=== PATIENT | female | born 1990 | race Caucasian/White ===

== ENCOUNTER 2020-04-21 02:42 | Inpatient (IN) | payer MEDICAID, SELFPAY ==
[2020-04-21] VITALS (18 sets, daily range): BP systolic 0–144; BP diastolic 0–88; PULSE 79–101; RESP 15–16; TEMP 36.7–37.2; O2SAT 98; BMI 27.2
--- NOTE | 2020-04-21 03:10 | P.PCNOB_ITS ---
Delivery Note: Date of delivery: April 21, 2020 Pre-Delivery Course: The patient is a 3 para 2-0-0-2 with an estimated gestational age of 38 weeks who presented to the hospital in active labor. She was found to be complete upon arrival. She was in my office yesterday where she was found to have a systolic blood pressure greater than 140 during 3 different blood pressure checks. At that time we elected to induce her today at 1:00 in the afternoon. It looks like that wont be necessary. Her course was unremarkable. She was GBS negative. Her glucose screen was negative. Remainder of her labs were within normal limits. Delivery: DELIVERY: The patient progressed to complete without difficulty. She delivered a female with a weight of 7 pounds 9 ounces with Apgars of 7, 9. The baby was delivered from the ANEL position. The baby's mouth and nose were suctioned at the site of the perineum. The baby was then completely delivered and placed on the mother's abdomen. The cord was then clamped and cut 1 minute after delivery. There was a nuchal cord x2. There was no meconium. The placenta and 3 vessel cord were delivered intact shortly thereafter. The perineum and vaginal vault were carefully examined. No lacerations were noted. Both the mother and the baby were in stable condition. A&P Assessment and plan (1) 38 weeks gestation of : Status: Acute (2) Spontaneous vaginal delivery: Status: Acute (3) Gestational hypertension: Status: Acute Coding Level of Care Code Acute Weaver Apprentice for Chg Fwd Diagnoses 38 weeks gestation of Z3A.38 Spontaneous vaginal delivery O80 Gestational hypertension O13.9
[2020-04-21 03:53] LABS: Basophils # 0.1 10^3/uL (0.0-0.1); Basophils % 0.4 %; Eosinophils # 0.2 10^3/uL (0.0-0.8); Eosinophils % 1.5 %; Hematocrit 33.1 % (37.0-47.0); Hemoglobin 10.5 g/dL (11.5-15.3); Lymphocytes # 2.3 10^3/uL (0.8-4.8); Lymphocytes % 15.7 %; Mean Corpuscular HGB Conc 31.7 g/dL (30.0-36.0); Mean Corpuscular Hemoglobin 26.4 pg (28.0-34.0); Mean Corpuscular Volume 83.4 fL (81-99); Mean Platelet Volume 11.3 fL (7.4-10.4); Monocytes # 1.3 10^3/uL (0.2-0.9); Monocytes % 8.5 %; Neutrophils # 10.73 10^3/uL (1.8-7.7); Neutrophils % 73.2 %; Nucleated Red Blood Cells % 0 %; Platelet Count 222 10^3/cmm (130-400); Red Blood Count 3.97 10^6/uL (4.1-5.3); Red Cell Distribution Width 13.3 % (12.1-15.1); White Blood Count 14.7 10^3/uL (4.0-10.0)
[2020-04-21] MEDS: prenatal vitamin Capsule 1 CAP PO (08:14)
[2020-04-21] MEDS: docusate sodium 100 mg Capsule PO ×2 (08:14→18:04)
[2020-04-21 15:31] LABS: Hematocrit 31.2 % (37.0-47.0); Hemoglobin 9.6 g/dL (11.5-15.3); Mean Corpuscular HGB Conc 30.8 g/dL (30.0-36.0); Mean Corpuscular Hemoglobin 26.2 pg (28.0-34.0); Mean Platelet Volume 10.8 fL (7.4-10.4); Platelet Count 193 10^3/cmm (130-400); Red Blood Count 3.67 10^6/uL (4.1-5.3); Red Cell Distribution Width 13.2 % (12.1-15.1); White Blood Count 15.8 10^3/uL (4.0-10.0)
[2020-04-22 04:00] VITALS: BP 111/78; PULSE 91; RESP 16; TEMP 36.6; O2SAT 97
--- NOTE | 2020-04-22 06:24 | P.DS_ITS ---
Discharge Providers PATIENT NAVIGATOR Date of Admission: 04/21/20 02:42 Date of Discharge: 04/22/20 Attending Provider at Admission: Jaydon Briscoe MD Attending Provider at Discharge: Jaydon Briscoe MD Primary Care Provider: Iesha Thompson APN Diagnoses at Discharge Discharge Diagnosis (1) 38 weeks gestation of : Status: Acute (2) Spontaneous vaginal delivery: Status: Acute (3) Gestational hypertension: Status: Acute Reason for Visit Reason for Visit: ABD PAIN Hospital Course Hospital Course: The patient arrived to the hospital after having contractions every 3 to 5 minutes for several hours. She was checked after arriving at the hospital and found to be complete. I was contacted and arrived approximately 20 minutes later. The patient then pushed through 2 contractions and delivered an infant without difficulty. The baby was a healthy-appearing female infant in did not have any difficulty during her hospital stay. The patient also did well. She breast-fed well. Her pain was well controlled. Her bleeding was within normal limits. There were no concerns. Information Peripartum Data: Delivery Method: Vaginal Physical Exam Narrative: EXAM NARRATIVE: The patient is alert. She appears comfortable. Her heart has a regular rate and rhythm with no murmurs appreciated. Lungs are clear to auscultation bilaterally. Her fundus is firm and below the umbilicus. Discharge Data Data Completed and Pending: Pending at discharge Category Date Time Status PTC COVID [Russ virus Lab Test PTC ] Stat Lab 04/21/20 04:35 Received Labs from last 24 hours 04/21/20 04/21/20 15:15 04:35 WBC 15.8 H RBC 3.67 L Hgb 9.6 L Hct 31.2 L MCV 85.0 MCH 26.2 L MCHC 30.8 RDW 13.2 Plt Count 193 MPV 10.8 H Nasal/Oral COVID-1 9 PCR Pending Vitals: Last Vital Signs Temp 97.8 F 04/22/20 04:00 Pulse 91 04/22/20 04:00 Resp 16 04/22/20 04:00 BP 111/78 04/22/20 04:00 Pulse Ox 97 04/22/20 04:00 Discharge Plan Discharge Patient Disposition: Home Condition: Stable Prescriptions: New ibuprofen 800 mg Tablet 800 mg PO TID Qty: 30 RF: 0 Continued Zoloft 25 mg Tablet 25 mg PO DAILY RF: 0 melatonin 1 mg Tablet 1 mg PO DAILY RF: 0 Vitamin 1 tab PO DAILY RF: 0 Discontinued Unisom (doxylamine) 25 mg Tablet 25 mg PO Q6H RF: 0 Discharge Orders: Discharge Order (Routine); Ordered 04/22/20 Ordered By: Jaydon Briscoe Referrals: Jaydon Briscoe MD [Physician] - 06/03/20 12:00 pm (* Your 6 week follow up appointment is with Dr. Briscoe on 06/03/2020 at 12:00pm. 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
[2020-04-22] MEDS: prenatal vitamin Capsule 1 CAP PO (09:12)
[2020-04-22] MEDS: docusate sodium 100 mg Capsule PO (09:12)
[2020-04-22 09:13] VITALS: BP 117/73; PULSE 111
[2020-04-22 09:19] VITALS: BP 117/73; PULSE 111; RESP 18; TEMP 36.9; O2SAT 98
[2020-04-22 16:00] LABS: Coronavirus Lab Test PTC Negative
== END 2020-04-22 09:25 | disposition home or self-care (01) | DRG 807 ==
LOC: OPOB 02:42 → OBGYN 03:00
PROVIDERS: Admitting Provider Family Medicine; PCP Nurse Practitioner; Visit Provider Family Medicine
DX: O62.3 Precipitate labor (principal); Z37.0 Single live birth; O13.4 Gestational [pregnancy-induced] hypertension without significant proteinuria, complicating childbirth; Z3A.38 38 weeks gestation of pregnancy; O69.81X0 Labor and delivery complicated by cord around neck, without compression, not applicable or unspecified
CPT/HCPCS: 12345; 36415; 59025; 59409; 85025; 85027; 86850; 86900; 87635; 99211

== ENCOUNTER → 2021-07-09 17:33 | Outpatient (BNVA) | payer BC, SELFPAY | PROVIDERS: PCP Family Medicine; Visit Provider Family Medicine | DX: Z20.822 Contact with and (suspected) exposure to COVID-19 (principal); R05.9 Cough, unspecified; U07.1 COVID-19 | CPT/HCPCS: 87400; 87635; 87880 ==

== ENCOUNTER → 2022-08-16 15:58 | Outpatient (BNVA) | payer BC, MEDICAID, SELFPAY | PROVIDERS: PCP Family Medicine; Visit Provider Emergency Medicine | DX: S89.92XA Unspecified injury of left lower leg, initial encounter (principal); W10.9XXA Fall (on) (from) unspecified stairs and steps, initial encounter | CPT/HCPCS: 73562 ==

== ENCOUNTER → 2022-09-11 13:49 | Outpatient (BNVA) | payer BC, MEDICAID, SELFPAY | PROVIDERS: PCP Family Medicine; Visit Provider Family Medicine | DX: J02.9 Acute pharyngitis, unspecified (principal) | CPT/HCPCS: 87880 ==

== ENCOUNTER 2022-10-06 11:50 | Outpatient (CLI) | payer BC, MEDICAID, SELFPAY ==
--- NOTE | 2022-10-06 11:56 | MR_ITS ---
WS: [id number] MRI LEFT KNEE HISTORY: MCMURRAYS SIGN PRESENT IN L KNEE COMPARISON: Radiograph 08/16/2022 Anterior cruciate ligament: Intact. Posterior cruciate ligament: Intact. Medial collateral ligament: Intact. Posterior lateral corner structures: Intact. Medial menisci: Abnormal signal in the anterior and posterior horns of the medial meniscus. Small prema iber anterior horn with intrasubstance degeneration throughout. Increased signal throughout the poste rior horn extending to the superior articular surface. Abnormal signal extends also towards the free edge and the meniscal root. Lateral meniscus: Intact. Normal signal, size and shape. Extensor mechanism: Distal quadriceps tendon and patellar tendons are intact. Fluid and soft tissue: No joint effusion. No Shrestha's cyst. Osseous and articular structures: Patellofemoral compartment: Normal. Medial compartment: Mild narrowing of the medial compartment. Very minimal thinning and fissuring of cartilage. No full thickness defect. No marrow edema. Lateral compartment: Normal. MR/MR knee LT wo con* [id number] IMPRESSION: 1. No ACL tear. 2. Abnormal medial meniscus involving the anterior and posterior horns. There is intrasubstance degeneration with tears. Complex tear posterior horn with ext ension to the superior articular surface. 3. No marrow edema or fracture.
== END 2022-10-06 11:51 | disposition home or self-care (01) ==
LOC: RAD 11:52
PROVIDERS: PCP Family Medicine; Visit Provider Nurse Practitioner Family
DX: S83.207A Unspecified tear of unspecified meniscus, current injury, left knee, initial encounter (principal); X58.XXXA Exposure to other specified factors, initial encounter
CPT/HCPCS: 73721

== ENCOUNTER → 2022-10-18 10:59 | Outpatient (BNVA) | payer BC, MEDICAID, SELFPAY | PROVIDERS: PCP Family Medicine; Referring Provider Family Medicine; Visit Provider Specialist | DX: S83.232A Complex tear of medial meniscus, current injury, left knee, initial encounter (principal); X50.9XXA Other and unspecified overexertion or strenuous movements or postures, initial encounter | CPT/HCPCS: 73560; 73565 ==

== ENCOUNTER 2022-11-10 07:57 | Day surgery (SDC) | payer BC, MEDICAID, SELFPAY ==
[2022-11-09 09:37] VITALS: BMI 26.6
[2022-11-10] VITALS (10 sets, daily range): BP systolic 64–126; BP diastolic 46–83; PULSE 68–102; RESP 11–20; TEMP 36.1–36.5; O2SAT 97–100
[2022-11-10 08:22] LABS: OR HCG Qualitative Urine Negative (Negative)
[2022-11-10] MEDS: CELEcoxib 200 mg Capsule 400 MG PO (08:49)
[2022-11-10] MEDS: acetaminophen 1,000 MG/100 ML PIGGYBACK 400 MG IV (08:49)
[2022-11-10] MEDS: sodium chloride 0.9% 1,000 ML 30 ML IV (08:50)
[2022-11-10] MEDS: gabapentin 300 mg Capsule PO (08:50)
--- NOTE | 2022-11-10 08:50 | ANES.PREANE2 ---
Pre-Anesthetic Assessment Height/Weight: Height 1.68 m Weight 74.843 kg Temp Pulse Resp BP Pulse Ox O2 Del Method 97.7 F 102 H 16 126/83 98 11/10/22 08:19 11/10/22 08:19 11/10/22 08:19 11/10/22 08:19 11/10/22 08:19 11/10/22 08:24 Preop Diagnosis: Left medial meniscal tear Operation Date: 11/10/22 09:40 Proposed Procedures p LEFT KNEE ARTHROSCOPY WITH PARTIAL MEDIAL MENISECTOMY AND DEBRIDEMENT 92056, S83.232A S89.92XA(Left) - Lucy Aguilar MD s Meniscectomy(Left) - Lucy Aguilar MD s Debridement Lower Extremity(Left) - Lucy Aguilar MD Familial anesthetic complications: None Was Beta Librado taken within 24 hours: Yes Was Clonidine taken within 24 hours: N/A Last intake: Intake Last Liquid Date 11/09/22 Last Liquid Time 21:00 Last Solid Date 11/09/22 Last Solid Time 19:00 Social No alcohol and No tobacco Exam alert, oriented x 3, clear to auscultation bilaterally and regular rate & rhythm Airway Mallampati: Class II Dentition: chipped Neuropsych Anxiety Anesthetic Plan ASA status: 2 Anesthesia: General Risk of > 500 ml blood loss (7ml/kg in children): No Medications/Allergies Home Medications Medication Instructions Recorded Confirmed Last Taken Type amitriptyline 25 mg tablet 25 mg PO DAILY 08/16/22 11/09/22 11/09/22 History miscellaneous medical supply 1 ea miscellaneous .prn left knee 08/16/22 10/18/22 Unknown Rx injury #1 ea propranolol 20 mg tablet 10 mg PO BID 08/16/22 11/09/22 11/10/22 History ibuprofen 800 mg tablet 800 mg PO TID #30 tabs 08/27/22 11/09/22 11/02/22 Rx Allergies Allergy/AdvReac Type Severity Reaction Status Date / Time Penicillins Allergy ALGY-Hives Verified 11/09/22 09:35 silver Allergy ALGY-Hives Verified 11/09/22 09:35 terbinafine Allergy Unknown Verified 10/18/22 11:10 PFSH Anesthesia Female Reproductive History Date of last menstrual period: 11/06/22 Data Anesthesia Cardiac Studies: No Data to Display
--- NOTE | 2022-11-10 09:19 | W.PM.OPSUD ---
Surgery/Procedure H&P Update DATE OF PROCEDURE: November 10, 2022 DATE H&P PERFORMED: 10/18/22 H&P UPDATE INFORMATION: I have reviewed H&P completed within last 30 days, I have examined patient prior to procedure, No changes to prior documentation and H&P is in [facility] EMR on date indicated PREOP DIAGNOSIS: Left medial meniscal tear PRIMARY INDICATION FOR PROCEDURE: Noncontrast MRI of the left knee was obtained at [facility] on October 06, 2022.? This was read by Dr. Charley Baer.? Findings on this MRI include intact anterior and posterior cruciate ligaments as well as medial and lateral collateral ligaments.? The lateral meniscus was noted to be normal.? Quadriceps and patellar tendons were intact.? At the time, there was no joint effusion or Shrestha's cyst.? There was mild narrowing of the medial compartment with minimal thinning and fissuring of the cartilage, but no full-thickness defect.? The remaining articular surfaces were normal.? Most significant finding was of abnormal signal in the anterior and posterior horns of the medial meniscus.? There was small caliber to the anterior horn with intrasubstance degeneration throughout and increased signal in the posterior horn extending to the superior articular surface and extending toward the free edge of the meniscal root.? This was felt to represent a complex tear particularly in the posterior horn but also involving the anterior horn of the medial meniscus. PLANNED PROCEDURE: Operation Date: 11/10/22 09:40 Proposed Procedures p LEFT KNEE ARTHROSCOPY WITH PARTIAL MEDIAL MENISECTOMY AND DEBRIDEMENT 76879, S83.232A S89.92XA(Left) - Lucy Aguilar MD s Meniscectomy(Left) - Lucy Aguilar MD s Debridement Lower Extremity(Left) - Lucy Aguilar MD Related Problem List Diagnoses (1) Tear of medial meniscus of left knee, current: Qualifiers: Encounter type: initial encounter Meniscus tear of knee type: complex Qualified Code(s): S83.232A - Complex tear of medial meniscus, current injury, left knee, initial encounter
[2022-11-10] MEDS: clindamycin 600 MG/50 ML PREMIX 100 MG IV (09:42)
--- NOTE | 2022-11-10 11:13 | P.OP_ITS ---
Operative Report Date of procedure: November 10, 2022 Pre-op diagnosis: Left medial meniscal tear Post-op diagnosis: Left medial and lateral meniscal tears Post-op findings: Bucket-handle type tear of the medial meniscus with inner rim tearing of the lateral meniscus Procedure done: Left arthroscopic knee surgery with partial medial and lateral meniscectomies. Pathology: none sent Surgeon: Lucy Aguilar Supervisor Safety Deposit: None Anesthesia: General (Per LMA, ASA 2) Estimated blood loss (mL): 2 Tourniquet time (min): 44 (At 250 mmHg) IV fluids (mL): 800 Urine output (mL): 0 (No Shaikh) Complications: None Condition: stable Disposition: PACU (Then return to same-day surgery for discharge to home) Brief History: This is a 32 year old female patient here today for left arthroscopic knee surgery with partial medial meniscectomy and appropriate debridement. Per MRI, the patient has a significant medial meniscal tear. She reports an injury on June 27, 2022. She states states as she was walking up her porch steps when she missed a step causing her to have a weighted pivoting injury. She explains she was holding her 2 year old daughter and trying not to fall with her into the wall. She states she didn't notice any immediate pain or popping noise. She explains she started to notice pain and swelling in August. She reports pain with squatting. She reports a soreness sensation with walking. She points to her medial patella as to where her pain is located. She states she has completed a month trial of Diclofenac with mild relief. She states she is currently active in physical therapy 3 times a week with mild relief. She states she has been active in therapy since September 14. Procedure: Patient was brought to the operating theater and after undergoing adequate general anesthesia per LMA, the patient's left lower extremity was prepped and draped in usual fashion utilizing DuraPrep. A tourniquet was placed high on the leg prior to prepping and draping. The tourniquet was elevated prior to commencement of the surgical procedure to 250 mmHg. Total tourniquet time was 44 minutes. Elevation followed prepping and exsanguination. Prior to commencement of the surgical procedure, a surgical pause was performed. At the time of the surgical pause, we identified the site and side of surgery. We also confirm the patient's identity and appropriate and timely administration of preoperative antibiotics, clindamycin 600 mg. Preoperative surgical markings were also visualized at this time. Standard arthroscopic portals were utilized including superolateral, inferomedial, and inferolateral portals. 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 The arthroscope was then passed in the medial compartment where there was noted to be a bucket- handle type tear of the medial meniscus. This tear was displaced anteriorly. A combination of basket forceps and the intra-articular shaver was used to address this tear. After it had been resected, the heat wand was used to smooth the edges. The meniscus was then palpated and found to be intact with no further displaceable portions. The arthroscope was then passed across the notch area where anterior cruciate ligament was visualized and found to be intact. The scope was passed into the lateral compartment with the knee in a [id number] position. Lateral meniscus was noted to have inner rim tearing. This was addressed with the heat wand. The edge was noted to be quite thinned and there were small tears. These tears were resected. The meniscus was then palpated and found to not be displaceable into the joint. Scope was then returned to the medial compartment where further evaluation of the medial meniscus was accomplished. The meniscus was again palpated and found to be not displaceable into the knee joint. The arthroscope was then returned to the patellofemoral joint where a partial synovectomy was accomplished using the intra-articular shaver and subsequently the heat wand. Once this area had been addressed, the scope was passed back through the knee compartments to evaluate for other abnormalities. Finding none, attention was directed to closure. The knee was copiously irrigated and suctioned dry. Following this, each portal was closed with a simple suture followed by Dermabond, Steri-Strip, and OpSite. Additionally, the knee was injected with 20 mL of half percent ropivacaine and 8 mg of morphine. Additional 10 mL of ropivacaine was placed about the portals. Sterile dressing was placed consisting of the OpSite followed by sterile soft roll and and Chris wrap. Patient was returned to Recovery Room in satisfactory condition where she will be discharged home to follow-up with me in the office as scheduled. There were no complications and no specimens. Related Problem List Diagnoses (1) Tear of medial meniscus of left knee, current: (2) Tear of lateral meniscus of knee, current:
--- NOTE | 2022-11-10 11:39 | ANE.PACU2 ---
Inpatient post-anesthesia follow up: Airway intact: Yes Vital signs: Temperature 97.2 F Pulse Rate 80 Respiratory Rate 11 Blood Pressure 100/66 Pulse Oximetry 97 Oxygen Delivery Me thod Room Air Oxygen Flow Rate 6 Fraction of Inspir ed Oxygen Hydration adequate: Yes Nausea and vomiting: No Pain level: 1 Mental status: Baseline
[2022-11-10] MEDS: HYDROcodone-acetaminophen 5-325 mg Tablet 1 TAB PO (12:50)
== END 2022-11-10 13:25 | disposition home or self-care (01) ==
PROVIDERS: Anesthesiology; PCP Family Medicine; Visit Provider Specialist
PROC: (CPT 29870; principal; 2022-11-10 09:30)
PROC: (CPT 29880; 2022-11-10 09:30)
PROC: (CPT 29880; 2022-11-10 09:30)
DX: S83.212A Bucket-handle tear of medial meniscus, current injury, left knee, initial encounter (principal); S83.282A Other tear of lateral meniscus, current injury, left knee, initial encounter; X58.XXXA Exposure to other specified factors, initial encounter; F41.9 Anxiety disorder, unspecified
CPT/HCPCS: 29880; 81025; 84703; J0131; J1100; J1200; J1885; J2250; J2405; J2704; J3010; J3490; J7030

== ENCOUNTER 2024-04-17 13:09 | Outpatient (CLI) | payer BC, MEDICAID, SELFPAY ==
--- NOTE | 2024-04-17 | XR_ITS ---
WS: [id number] Examination: XR chest 2V* [id number] Reason for Exam: COUGH Date: 04/17/2024 Comparison: None. Findings: The cardiomediastinal silhouette is within normal limits. There is no dense consolidative change. There is no congestion/edema or pleural effusion. Pectus excavatum deformity is identified. XR/XR chest 2V* [id number] Impression: No dense consolidation is seen.
== END 2024-04-17 13:10 | disposition home or self-care (01) ==
LOC: RADOUTREAD 13:12
PROVIDERS: PCP Family Medicine; Visit Provider Family Medicine
DX: R05.9 Cough, unspecified (principal)

== ENCOUNTER 2024-05-09 09:30 | Oncology outpatient (recurring) (ONCR) | payer BC, MEDICAID, SELFPAY ==
[2024-04-25 09:54] VITALS: BP 125/65; PULSE 98; RESP 16; TEMP 36.9; O2SAT 100
[2024-04-25] MEDS: iron sucrose 200 MG in sodium chloride 0.9% (100 ml) 100 ML 220 MG IV (10:19)
[2024-04-25] MEDS: sodium chloride 0.9% 250 ML 220 ML IV (10:19)
[2024-04-25 11:15] VITALS: BP 109/73; PULSE 89; RESP 16; TEMP 36.3; O2SAT 99
[2024-05-02 10:05] VITALS: BP 108/73; PULSE 85; RESP 16; TEMP 36.9; O2SAT 99
[2024-05-02] MEDS: iron sucrose 200 MG in sodium chloride 0.9% (100 ml) 100 ML 220 MG IV (10:15)
[2024-05-09] MEDS: iron sucrose 200 MG in sodium chloride 0.9% (100 ml) 100 ML 220 MG IV (10:32)
[2024-05-09 11:07] VITALS: BP 106/75; PULSE 75; RESP 16; TEMP 37; O2SAT 99
== END 2024-05-12 23:59 | disposition home or self-care (01) ==
PROVIDERS: PCP Family Medicine; Visit Provider Family Medicine
DX: D50.9 Iron deficiency anemia, unspecified (principal); Z79.899 Other long term (current) drug therapy; Z53.9 Procedure and treatment not carried out, unspecified reason
CPT/HCPCS: 96365; J1756; J7050

== ENCOUNTER 2024-05-23 09:39 | Oncology outpatient (recurring) (ONCR) | payer BC, MEDICAID, SELFPAY ==
[2024-05-16] MEDS: iron sucrose 200 MG in sodium chloride 0.9% (100 ml) 100 ML 220 MG IV (10:05)
[2024-05-16 10:40] VITALS: BP 116/67; PULSE 84; RESP 16; TEMP 36.3; O2SAT 100
[2024-05-23] MEDS: iron sucrose 200 MG in sodium chloride 0.9% (100 ml) 100 ML 220 MG IV (10:01)
[2024-05-23 10:34] VITALS: BP 110/77; PULSE 89; RESP 16; TEMP 36.6; O2SAT 99
== END 2024-06-12 23:59 | disposition home or self-care (01) ==
PROVIDERS: PCP Family Medicine; Visit Provider Family Medicine
DX: D50.9 Iron deficiency anemia, unspecified; Z79.899 Other long term (current) drug therapy; Z53.9 Procedure and treatment not carried out, unspecified reason
CPT/HCPCS: 96365; J1756

== ENCOUNTER 2024-10-26 14:53 | Emergency (ER) | payer BC, MEDICAID, SELFPAY ==
[2024-10-26 14:55] VITALS: BP 134/90; PULSE 79; RESP 14; TEMP 36.4; O2SAT 99; BMI 26.6
--- NOTE | 2024-10-26 15:05 | XRR_ITS ---
PROCEDURE INFORMATION: Exam: XR Left Finger(s) Exam date and time: 10/26/2024 3:06 PM Age: 34 years old Clinical indication: Injury or trauma; Finger; Left; Lt thumb crushing injury TECHNIQUE: Imaging protocol: Radiologic exam of the left fingers. Views: Minimum 2 views. COMPARISON: No relevant prior studies available. FINDINGS: Bones/joints: Normal. Soft tissues: Normal. XR/XR finger LT min 2V [id number] IMPRESSION: No acute findings.
--- NOTE | 2024-10-26 15:05 | W.ED.UPPEXIN ---
HPI - Extremity Injury (Upper) General: Chief Complaint: Extremity Injury, Upper Stated Complaint: smashed L thumb, pain Time Seen by Provider: 10/26/24 14:58 Source: patient Mode of arrival: ambulatory Limitations: no limitations History of Present Illness: Patient is a 34-year-old female who presents to ED today for evaluation of a left thumb injury that she sustained just prior to arrival after she accidentally smashed the distal end of the left thumb in a metal clothing rack. complaint: injury to: left and finger Onset (ago): hour(s) Other Extremity Injury: Left: hand (L thumb) Other injuries: none Place: home Severity: moderate Relieving factors: none Exacerbating factors: movement of extremity Context: direct blow and crush Associated symptoms: Reports no associated symptoms Related Data Home Medications ?Medication ?Instructions ?Recorded ?Confirmed amitriptyline 25 mg tablet 25 mg PO DAILY 08/16/22 11/24/22 propranolol 20 mg tablet 10 mg PO BID 08/16/22 11/24/22 Previous Rx's ?Medication ?Instructions ?Recorded miscellaneous medical supply 1 ea miscellaneous .prn left knee 08/16/22 injury #1 ea ibuprofen 800 mg tablet 800 mg PO TID #30 tabs 08/27/22 Allergies Allergy/AdvReac Type Severity Reaction Status Date / Time Penicillins Allergy ALGY-Hives Verified 10/26/24 15:01 silver Allergy ALGY-Hives Verified 10/26/24 15:01 terbinafine Allergy Unknown Verified 10/26/24 15:01 Review of Systems Musc: Reports: extremity pain (L thumb); Denies: joint pain or joint swelling [facility] ED PFSH: Medical History Psychiatric care Physical Exam Const: COMMON NORMALS: no acute distress, average body habitus, no limitations, healthy appearing, alert and well nourished Extremity: COMMON NORMALS: capillary refill normal GENERAL: Yes normal exam except as noted LEFT UPPER EXTREMITY: Yes hand & digits (contusion at base of L great thumb nail; no nail damage/avulsion/hematoma) Left hand and digits: Yes neurovascular exam (normal) and Yes other (no lacerations present; mild contusion only) Neuro: COMMON NORMALS: moves all extremities, no focal motor deficits and no sensory deficits noted SENSORIUM/ORIENTATION: Yes alert Course Vital Signs: Vital signs: Vital Signs Temperature 97.6 F 10/26/24 14:55 Pulse Rate 79 10/26/24 14:55 Respiratory Rate 14 10/26/24 14:55 Blood Pressure 134/90 10/26/24 14:55 Pulse Oximetry 99 10/26/24 14:55 Oxygen Delivery Me thod Room Air 10/26/24 14:55 MDM - Extremity Injury (Upper) Medical Decision Making XR unremarkable. Recommend conservative therapies. XR interpretation done by ED provider, pending radiology final review Discharge Plan Discharge Patient Disposition: Home Clinical Impression: Contusion of left thumb Qualifiers: Encounter type: initial encounter Damage to nail status: without damage Qualified Code(s): S60.012A - Contusion of left thumb without damage to nail, initial encounter Condition: Stable Prescriptions: No Action amitriptyline 25 mg tablet 25 mg PO DAILY propranolol 20 mg tablet 10 mg PO BID miscellaneous medical supply Misc 1 ea miscellaneous .prn Qty: 1 0RF ibuprofen 800 mg tablet 800 mg PO TID Qty: 30 0RF Discharge Orders: Discharge ED (Routine); Ordered 10/26/24 Ordered By: Jayde Saunders Referrals: Jaydon Briscoe MD [Primary Care Provider] - Patient Instructions: Contusion Print Language: Amharic Coding Level of Care Code ED Steam Room Attendant for Sabi Paris
== END 2024-10-26 15:38 | disposition home or self-care (01) ==
PROVIDERS: Emergency Provider Physician Assistant; PCP Family Medicine
DX: S60.012A Contusion of left thumb without damage to nail, initial encounter (principal); X58.XXXA Exposure to other specified factors, initial encounter
CPT/HCPCS: 73140; 99283

== ENCOUNTER 2024-12-13 19:37 | Emergency (ER) | payer BC, MEDICAID, SELFPAY ==
[2024-12-13 19:56] VITALS: BP 118/80; PULSE 106; RESP 16; TEMP 36.8; O2SAT 99; BMI 25.8
--- NOTE | 2024-12-13 21:20 | XRR_ITS ---
PROCEDURE INFORMATION: Exam: XR Left Foot Exam date and time: 12/13/2024 9:40 PM Age: 34 years old Clinical indication: Injury or trauma; Other: Pallet fell on foot; Blunt trauma; Injury details: PT arrives with C/O left foot pain. PT stated she had a pallet fall on her left foot after moving it. TECHNIQUE: Imaging protocol: Radiologic exam of the left foot. Views: 3 or more views. COMPARISON: CR XR knees AP WB w LT lmt ORTH 10/18/2022 11:05 AM FINDINGS: Bones/joints: Normal. Soft tissues: Normal. XR/XR foot LT min 3V* [id number] IMPRESSION: No acute findings.
--- NOTE | 2024-12-13 21:58 | W.ED.EXTPRO ---
HPI - Extremity Problem General: Chief complaint: Extremity Injury, Lower Stated complaint: left foot injury Time Seen by Provider: 12/13/24 21:42 History of Present Illness: 34-year-old female. She presents after a 30 pound wooden pallet fell on her foot around 3 PM. She complains of pain to the top and medial midfoot on the left. Some swelling. She can bear weight, but she says it hurts quite badly. No numbness or tingling. No ankle injury. Related Data Home Medications ?Medication ?Instructions ?Recorded ?Confirmed propranolol 20 mg tablet 10 mg PO BID 08/16/22 10/29/24 albuterol sulfate 90 mcg/actuation 2 puff inhalation Q6H PRN 10/29/24 10/29/24 aerosol inhaler (Ventolin HFA) amitriptyline 25 mg tablet 50 mg PO DAILY 10/29/24 10/29/24 ascorbate calcium (vitamin C) 500 500 mg PO DAILY 10/29/24 10/29/24 mg tablet azelastine 137 mcg (0.1 %) nasal 1 spray intranasal BID 10/29/24 10/29/24 spray ferrous sulfate 325 mg (65 mg 325 mg PO BID 10/29/24 10/29/24 iron) tablet fluticasone propionate 50 1 spray intranasal DAILY 10/29/24 10/29/24 mcg/actuation nasal spray,suspension (Allergy Relief (fluticasone)) magnesium hydroxide 600 mg mg PO DAILY 10/29/24 10/29/24 chewable tablet (Dulcolax (magnesium hydroxide)) mometasone-formoterol HFA 200 2 puff inhalation BID 10/29/24 10/29/24 mcg-5 mcg/actuation aerosol inhaler (Dulera) norethindrone (contraceptive) 0.35 0.35 mg PO DAILY 10/29/24 10/29/24 mg tablet (Jencycla) pantoprazole 40 mg tablet,delayed 40 mg PO DAILY 10/29/24 10/29/24 release vitamin B complex 1 cap PO DAILY 10/29/24 10/29/24 Previous Rx's ?Medication ?Instructions ?Recorded duloxetine 60 mg capsule,delayed 60 mg PO DAILY #30 caps 10/29/24 release ketorolac 10 mg tablet 10 mg PO TID PRN pain #10 tabs 12/13/24 Allergies Allergy/AdvReac Type Severity Reaction Status Date / Time Penicillins Allergy ALGY-Hives Verified 10/29/24 08:48 silver Allergy ALGY-Hives Verified 10/29/24 08:48 terbinafine Allergy Unknown Verified 10/29/24 08:48 PFSH ED PFSH: Medical History Psychiatric care Physical Exam Const: COMMON NORMALS: no acute distress GENERAL APPEARANCE: cooperative; not ill appearing and not frail appearing HENMT: COMMON NORMALS: normocephalic, atraumatic and Normal external nose present HEAD & SCALP: normocephalic and atraumatic FACE & SINUS: normal facial exam and face symmetric NOSE: Normal external nose present Eye: COMMON NORMALS: Equal, round and reactive pupils present and EOMs intact bilaterally PUPIL: Yes Equal, round and reactive pupils present Neck/C-Spine: GENERAL: Yes trachea midline Chest: CHEST: Yes Symmetrical chest wall rise Resp: COMMON NORMALS: normal respiratory effort and No retractions Cardio: COMMON NORMALS: regular rate and regular rhythm RATE: regular rate RHYTHM: regular rhythm GI: COMMON NORMALS: Normal to inspection, nondistended, normoactive bowel sounds present Extremity: NARRATIVE EXTREMITY EXAM: Examination of the left foot reveals midfoot swelling and tenderness. There is no deformity. Tenderness is mainly over the navicular and cuneiforms dorsally, and medial navicular. Mild soft tissue swelling. Pulses are normal. Sensation is intact distally. No significant ankle joint line tenderness. Neuro: JENNIFER COMA SCALE: document GCS findings Leland coma scale eye opening: Spontaneous Jennifer coma scale verbal response: Orientated Jennifer coma scale motor response: Obey commands Jennifer coma scale total score: 15 SENSORY EXAM: Yes extremities (intact) Psych: COMMON NORMALS: speech normal SPEECH: Yes normal speech Course Vital Signs: Vital signs: Vital Signs Temperature 98.3 F 12/13/24 19:56 Pulse Rate 106 H 12/13/24 19:56 Respiratory Rate 16 12/13/24 19:56 Blood Pressure 118/80 12/13/24 19:56 Pulse Oximetry 99 12/13/24 19:56 Oxygen Delivery Me thod Room Air 12/13/24 19:56 MDM - Extremity (Nontraumatic) Medical Decision Making X-ray is negative for bony injury. There is some soft tissue swelling dorsally. She be placed on crutches, given Chris wrap. Anti-inflammatory pain medication. Outpatient follow-up. Lab Data Radiology Impressions Foot X-Ray 12/13/24 21:20 IMPRESSION: No acute findings. XR interpretation done by ED provider, pending radiology final review Discharge Plan Discharge Patient Disposition: Home Clinical Impression: Crush injury of left foot Condition: Stable Prescriptions: New ketorolac 10 mg tablet 10 mg PO TID PRN (Reason: pain) Qty: 10 0RF No Action propranolol 20 mg tablet 10 mg PO BID amitriptyline 25 mg tablet 50 mg PO DAILY ferrous sulfate 325 mg (65 mg iron) tablet 325 mg PO BID pantoprazole 40 mg tablet,delayed release (DR/EC) 40 mg PO DAILY albuterol sulfate [Ventolin HFA] 90 mcg/actuation HFA aerosol inhaler 2 puff inhalation Q6H PRN azelastine 137 mcg (0.1 %) spray,non-aerosol 1 spray intranasal BID Rx Instructions: administer into each nostril Dulera 200-5 mcg/actuation HFA aerosol inhaler 2 puff inhalation BID fluticasone propionate [Allergy Relief (fluticasone)] 50 mcg/actuation spray,suspension 1 spray intranasal DAILY Rx Instructions: administer into each nostril norethindrone (contraceptive) [Jencycla] 0.35 mg tablet 0.35 mg PO DAILY ascorbate calcium (vitamin C) 500 mg tablet 500 mg PO DAILY vitamin B complex Capsule 1 cap PO DAILY Dulcolax (magnesium hydroxide) 600 mg tablet,chewable PO DAILY duloxetine 60 mg capsule,delayed release(DR/EC) 60 mg PO DAILY Qty: 30 2RF Discharge Orders: Discharge ED (Routine); Ordered 12/13/24 Ordered By: Femi Bennett Referrals: Jaydon Briscoe MD [Primary Care Provider, Family Practice] Patient Instructions: Crush Injury (ED), Opioid Safety, Pain Management Activity Restrictions/Additional Instructions: Ice frequently. Pain medication as directed. Do not use pain medication if you think you may be . Use Tylenol instead. Elevate for swelling. Use crutches to bear weight, until weightbearing as possible without them. Follow-up with your doctor next week call Sunday for an appointment. Print Language: Spanish Coding Level of Care Code ED Head Inspector And Center Marker for Sabi Paris
[2024-12-13] MEDS: oxyCODONE-APAP 5-325 mg Tablet 2 TAB PO (22:11)
== END 2024-12-13 22:20 | disposition home or self-care (01) ==
PROVIDERS: Emergency Provider Emergency Medicine; PCP Family Medicine
DX: S97.82XA Crushing injury of left foot, initial encounter (principal); W31.89XA Contact with other specified machinery, initial encounter
CPT/HCPCS: 73630; 99283; E0114; J9999

== ENCOUNTER 2025-03-01 22:55 | Emergency (ER) | payer OTHER, BC, MEDICAID, SELFPAY ==
[2025-03-01 22:57] VITALS: BP 120/90; PULSE 83; RESP 22; TEMP 36.9; O2SAT 100; BMI 25.8
--- OUTSIDE RECORDS SUMMARY | 2025-03-01 23:04 | XMS_ITS | Continuity of Care Document ---
Author Name [facility] Organization [facility] Care Team Providers Care Hand Cigar Making Supervisor Name Role Phone [facility] Unavailable Unavailable Problems Combined list of problems from Department of Defense and [facility] facilities. It does not include entries that were removed or entered in error. Problem Status Onset Date Problem Type Date of Resolution Comments Source visit for: administrative purpose Inactive Condition [facility] PREG COMP: ANEMIA- ANTEPARTUM CONDITION OR PRIOR COMPLICATED Active Condition [facility] visit for: screening exam depression Inactive Condition [facility] Ed Initial Visit Description Of Care Plan Inactive Condition [facility] SORE THROAT Inactive Condition [facility] Inactive Condition [facility] Urine Test Inactive Condition [facility] Test Negative Inactive Condition [facility] ASSESS PATIENT CONDITION WORK-RELATED OCCUPATIONAL DISEASE Inactive Condition [facility] Allergies, Adverse Reactions, Alerts Combined list of allergies from Department of Defense and Veterans Affairs facilities. It does not include entries that were removed or entered in error. Substance Category Reaction Severity Reaction type Status Date Reported Comments Source PENICILLIN G (PENICILLIN G PROCAINE) Drug allergy (disorder) Unknown active 09/11/2013 [place] TERBINAFINE (TERBINAFINE HCL) Drug allergy (disorder) Unknown active 09/11/2013 [place] Immunizations Combined list of available immunizations from the Department of Defense and Veterans Affairs facilities. Immunization Series Date Given Administered By Site Reaction Lot Number CVX Code Drug Care Transport Nurse Status Comments Source Influenza, seasonal, injectable 1 2013 JENN LIN [id number] [employer] [employer] [place]. (NOV) [facility] ed Influenza , seasonal, injectabl e DoD Encounters Combined list of: 1) Encounters from Department of Veterans Affairs facilities going backup to the last 18 months, not all VA inpatient encounters are included; 2) Encounters from the Department of Defense facilities going backup to 280 months. Location Location Details Encounter Type Encounter Number Reason For Visit Attending Provider ADM Date DC Date Status Disposition Source [place], [place]([facility]) OUTPATIENT [id number] Notes Entered by: VOLODYMYR ARCINIEGA 21 Aug 2012 1622 ------- ------- ------- ------- -- [facility] JOHNATHON GARCIA 08/21 Released w/o Limitations [place], [place]([facility] ) [place] Team A) OUTPATIENT [id number] Notes Entered by: KEENA CREWS 12 Sep 2013 1341 ------- ------- ------- ------- -- Pregnan cy test RO BEARDEN 09/12 Released w/o Limitations [facility] Team A) [facility] Team A) OUTPATIENT [id number] Notes Entered by: MORELIA MORRISSEY 15 Sep 2013 0826 ------- ------- ------- ------- -- HCG Test KENZIE MCKEON 09/14 Released w/o Limitations [facility] Team A) [facility] Team B) OUTPATIENT [id number] Notes Entered by: BAKARI MUNOZ 17 Sep 2013 1406 ------- ------- ------- ------- -- throat culture PHILLIP POSADAS 09/17 Released w/o Limitations [facility] Team B) [facility](Obst etrics/Gy necology) OUTPATIENT [id number] dating u/s AKANKSHA COFFMAN 10/06 Released w/o Limitations [facility](Ob stetric s/Gynec ology) [facility](Obst etrics/Gy necology) OUTPATIENT [id number] NOB Class only SURENDRA ARGUETA 10/08 Released w/o Limitations [facility](Ob stetric s/Gynec ology) [facility]) OUTPATIENT [id number] Initial OB appt, LMP [id number] , , SPENSER [id number] MITESH RODGERS 10/31 Released w/o Limitations [facility]) [facility]) OUTPATIENT [id number] 16wk OB appt ANA MARIA MITESH NM 12/08 Released w/o Limitations [facility]) [facility]) OUTPATIENT [id number] 20 wk OB [place] , MITESH NM 12/31 Released w/o Limitations [facility]) [facility]) OUTPATIENT [id number] 24w check up [place] MITESH NM 01/30 Released w/o Limitations [facility]) [facility]) TELE CONSULT [id number] Notes Entered by: BAKARI MUNOZ 24 Feb 2014 0902 ------- ------- ------- ------- -- [place]: 28wk OB appoint ment: [phone] [place] 02/23 Referred for Appointment [facility]) [facility](Obst etrics/Gy necology) OUTPATIENT [id number] ryanne; . [facility] 03[facility]04 Released w/o Limitations [facility](Ob stetric s/Gynec ology) [facility](Obst etrics/Gy necology) TELE CONSULT [id number] Notes Entered by: ANA MURDOCK 04 Mar 2014 1238 ------- ------- ------- ------- -- [facility](Ob stetric s/Gynec ology) [facility]) OUTPATIENT [id number] 32wk JOAQUÍN AMATO 03/27 Released w/o Limitations [facility]) [facility]) OUTPATIENT [id number] 36JOAQUÍN Lu 04/24 Released w/o Limitations [facility]) [facility](Obst etrics/Gy necology) OUTPATIENT [id number] TOB/JOAQUÍN AMATO 05/12 Released w/o Limitations [facility](Ob stetric s/Gynec ology) [facility]) TELE CONSULT [id number] Notes Entered by: Diane SZYMANSKI 16 May 2014 1439 ------- ------- ------- ------- -- TCOR 3 randall gary. Invite to GLORIA Dowell 05/16 Other Not Elsewhere Classified [facility]) [facility](Obst etrics/Gy necology) TELE CONSULT [id number] Notes Entered by: Anna LOPEZ 17 May 2014 1950 ------- ------- ------- ------- -- TCOR RIAZ FERNANDES 05/17 [facility](Ob stetric s/Gynec ology) [facility](Obst etrics/Gy necology) OUTPATIENT [id number] TOB/ARMAND FERGUSON 05/19 Released w/o Limitations [facility](Ob stetric s/Gynec ology) [facility]) OUTPATIENT [id number] Notes Entered by: NOBLE LIN 20 May 2014 1234 ------- ------- ------- ------- -- JENN La 05/20 Released w/o Limitations [facility]) [facility] DIRECT TO [facility] FROM OTHER THAN ER OR U [id number] JOAQUÍN VELA 05/21 DISCHARGED HOME [facility]) OUTPATIENT [id number] 6-8week postpar JOAQUÍN Riley 07/06 Released w/o Limitations [facility]) [place](Obst etrics (Lactatio n Only)) OUTPATIENT [id number] Notes Entered by: DIOGENES DEAN 21 Jul 2014 1436 ------- ------- ------- ------- -- Lactati on assist with SITA Fields 07/21 Released w/o Limitations [facility](Ob stetric s (Lactat ion Only)) Procedures Combined list of: 1) Procedures from Department of Veterans Affairs facilities going back up to thelast 18 months, not all [place] non-surgical procedures are included; 2) All procedures from the Department of Defense facilities. Procedure Procedure Type Code Date Perfomer Comments [facility] e Patient Counseling Medical Management Individual Patient Patient Counseling Medical Management Individual Patient [id number] SITA MCKAY Screening papanicolaou smear; obtaining, preparing and conveyance of cervical or vaginal smear to laboratory 4 JOAQUÍN PATINO Cervical or vaginal cancer screening; pelvic and clinical breast examination 4 JOAQUÍN PATINO Influenza Split Virus Vacc Age 3+ Years IM Preservative Free 4 JENN LIN Immunization Administration One Vaccine Immunization Administration One Vaccine 26285 4 JENN LIN OB Services Antepartum Care Only Subsequent Single Visit OB Services Antepartum Care Only Subsequent Single Visit 0502F 4 ARMAND CARDENAS Ultrasound Obstetric Limited Evaluation Ultrasound Obstetric Limited Evaluation [id number] 4 JOAQUÍN PATINO OB Services Antepartum Care Only Subsequent Single Visit OB Services Antepartum Care Only Subsequent Single Visit 0502F 4 JOAQUÍN PATINO OB Services Antepartum Care Only Subsequent Single Visit OB Services Antepartum Care Only Subsequent Single Visit 0502F 4 JOAQUÍN PATINO OB Services Antepartum Care Only Subsequent Single Visit OB Services Antepartum Care Only Subsequent Single Visit 0502F 4 JOAQUÍN PATINO OB Services Antepartum Care Only Subsequent Single Visit OB Services Antepartum Care Only Subsequent Single Visit 0502F 4 AKANKSHA COFFMAN Preventive Med Standardized Depre ion Screening: No Significant Symptoms Preventive Med Standardized Depression Screening: No Significant Symptoms [id number] 4 [facility] OB Services Antepartum Care Only Subsequent Single Visit OB Services Antepartum Care Only Subsequent Single Visit 0502F 4 [facility] Services Antepartum Care Only Subsequent Single Visit OB Services Antepartum Care Only Subsequent Single Visit 0502F [facility] OB Services Antepartum Care Only Subsequent Single Visit OB Services Antepartum Care Only Subsequent Single Visit 0502F 4 [facility] Services Antepartum Care Only 1st Visit, With Flowsheet OB Services Antepartum Care Only 1st Visit, With Flowsheet 0501F 4 [facility] Patient Counseling Medical Management Five To Eight Patients Patient Counseling Medical Management Five To Eight Patients [id number] 4 SURENDRA ARGUETA [facility] OB Services Antepartum Care Only Subsequent Single Visit OB Services Antepartum Care Only Subsequent Single Visit 050F 4 [facility] Ultrasound [place] [address] [address] [facility] Patient Counseling Medical Management Individual Patient Patient Counseling Medical Management Individual Patient [id number] 4 KENZIE MCKEON [facility] Non-Physician Phone Call To Pt/Provider Lengthy (21-30 min) Non-Physician Phone Call To Pt/Provider Lengthy (21-30 min) [id number] 4 KENZIE MCKEON [facility] EDUCATION &TRAINING, PATIENT SELF-MGT QUALIFIED, NONPHYSICIAN HEALTH UNDERGROUND MINE SUPERINTENDENT USING STDIZED CURRICULUM, [id number] W THE PATIENT (COULD INCL CAREGIVER/FAMILY) EA 30 MIN; INDIVIDUAL PATIENT 4 [facility] SCREENING PAPANICOLAOU SMEAR; OBTAINING, PREPARING AND CONVEYANCE OF CERVICAL OR VAGINAL SMEAR TO LABORATORY 4 [facility] REPAIR OF OTHER CURRENT OBSTETRIC LACERATION 4 [facility] INFLUENZA VIRUS VACCINE, TRIVALENT (IIV3), SPLIT VIRUS, PRESERVATIVE FREE, 0.5 ML DOSAGE, FOR INTRAMUSCULAR USE 4 [facility] SUBSEQ CARE VISIT () [EXCLS:PATIENTS WHO ARE SEEN FOR A CONDITION UNREL TO / CARE (EG,AN UP RESPIR INFECT;PATIENTS SEEN FOR CONSULTATION ONLY,NOT FOR CONT CARE)] 4 [facility] ULTRASOUND, UTERUS, REAL TIME WITH IMAGE DOCUMENTATION, LIMITED (EG, HEART BEAT, PLACENTAL LOCATION, POSITION AND/OR QUALITATIVE AMNIOTIC FLUID VOLUME), 1 OR MORE FETUSES 4 [facility] SUBS CARE VISIT () [EXCLS:PATIENTS WHO ARE SEEN FOR A CONDITION UNREL TO / CARE (EG,AN UP RESPIR INFECT;PATIENTS SEEN FOR CONSULTATION ONLY,NOT FOR CONT CARE)] 4 [facility] SUBS CARE VISIT () [EXCLS:PATIENTS WHO ARE SEEN FOR A CONDITION UNREL TO / CARE (EG,AN UP RESPIR INFECT;PATIENTS SEEN FOR CONSULTATION ONLY,NOT FOR CONT CARE)] 4 [facility] SUBS CARE VISIT () [EXCLS:PATIENTS WHO ARE SEEN FOR A CONDITION UNREL TO / CARE (EG,AN UP RESPIR INFECT;PATIENTS SEEN FOR CONSULTATION ONLY,NOT FOR CONT CARE)] 4 [facility] SUBS CARE VISIT () [EXCLS:PATIENTS WHO ARE SEEN FOR A CONDITION UNREL TO / CARE (EG,AN UP RESPIR INFECT;PATIENTS SEEN FOR CONSULTATION ONLY,NOT FOR CONT CARE)] 4 [facility] SUBSEQ CARE VISIT () [EXCLS:PATIENTS WHO ARE SEEN FOR A CONDITION UNREL TO / CARE (EG,AN UP RESPIR INFECT;PATIENTS SEEN FOR CONSULTATION ONLY,NOT FOR CONT CARE)] 4 [facility] SUBS CARE VISIT () [EXCLS:PATIENTS WHO ARE SEEN FOR A CONDITION UNREL TO / CARE (EG,AN UP RESPIR INFECT;PATIENTS SEEN FOR CONSULTATION ONLY,NOT FOR CONT CARE)] 4 [facility] PRENAT FLW SHEET DOC,MED REC,1ST PRENAT VIS (DOC INC MIN BP,WT,URINE PROT,UTER SZ,FET HRT TONE,&EST DATE DEL). 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 MINE SUPERINTENDENT USING STANDARDIZED CURRICULUM, [id number] W THE PATIENT (COULD INCL CAREGIVER/FAMILY) EA 30 MIN; 5-8 PATIENTS 4 [facility] SUBSEQ CARE VISIT () [EXCLS:PATIENTS WHO ARE SEEN FOR A CONDITION UNREL TO / CARE (EG,AN UP RESPIR INFECT;PATIENTS SEEN FOR CONSULTATION ONLY,NOT FOR CONT CARE)] 4 [facility] EDUCATION &TRAINING, PATIENT SELF-MGT QUALIFIED, NONPHYSICIAN HEALTH UNDERGROUND MINE SUPERINTENDENT USING STDIZED CURRICULUM, [id number] W THE PATIENT (COULD INCL CAREGIVER/FAMILY) EA 30 MIN; INDIVIDUAL PATIENT 4 [facility] Social History Combined list of available smoking, tobacco, and other social history from Department of Defense and Veterans Affairs facilities. Social History Type Response Date Comment Sour e This section is an empty social history section. DoD
--- OUTSIDE RECORDS SUMMARY | 2025-03-01 23:06 | XMS_ITS | Encounter Summary ---
Author Organization [facility] Address [address] [place] [address] Care Team Providers Care Operating Engineer Name Role Phone Meghana Pearson MD Primary Care Provider [phone] Encounter Details Date Type Department Care Team (Late st Contact Info) Description 02/25/2025 External Device Data [place] ABSTRACTION Provider, Abstract NO ADDRESS ON FILE Social History Tobacco Use Types Packs/Day Years Used Date Smoking Tobacco: Never Passive Smoke Exposure: Past Smokeless Tobacco: Never Alcohol Use Standard Drinks/Week Comments No 0 (1 standard drink = 0.6 oz pur e alcohol) Comments Unknown Sex and Gender Information Value Date Recorded Sex Assigned at Not on file Legal Sex Female 3:51 AM [employer]CH[employer] Gender Identity Not on file Sexual Orientation Not on file documented as of this encounter Plan of Treatment Not on file documented as of this encounter Visit Diagnoses Not on filedocumented in this encounter Care Teams Operating Engineer Relationship Specialty Start Date End Date Meghana Pearson MD [address] [facility] [address] [place] [id number] PCP - General Family Practice 09/18/13 documented as of this encounter
--- OUTSIDE RECORDS SUMMARY | 2025-03-01 23:06 | XMS_ITS | Clinical Summary ---
Author Organization [facility] Address [address] Attn: [place] [address] Care Team Providers Care Stonemason Apprentice Name Role Phone Meghana Pearson MD Primary Care Provider Allergies Active Allergy Reactions Criticality Noted Date Comments Penicillins Other (See Comments) 12/27/2011 Doesn't know reaction, was allergic to pcn as a baby Terbinafine Hives High 12/27/2011 Medications albuterol sulfate HFA 90 mcg/actuation aerosol inhaler Take 2 Puffs by inhalation every 6 hours as needed. 5 Active amitriptyline (ELAVIL) 50 mg tablet Take 1 Tablet by mouth daily. 5 Active propranoloL (INDERAL) 20 mg tablet Take 1 Tablet by mouth 2 times daily. 4 Active DULoxetine (CYMBALTA) 30 mg Capsule, Delayed Release(E.C.) Take 1 Capsule by mouth daily. 5 Active FeroSuL 325 mg (65 mg iron) tablet Take 1 Tablet by mouth 2 times daily. 5 Active benzonatate (TESSALON) 100 mg capsule Take 100 mg by mouth 3 times daily as needed. 5 Active ascorbic acid (VITAMIN C) 100 mg Tablet, Chewable Take by mouth. Activ e cyanocobalamin (VITAMIN B-12) 50 mcg Tablet Take 50 mcg by mouth daily. Active Cetirizine 5 mg/5 mL Solution Take by mouth. Activ e azelastine (ASTELIN) 137 mcg/actuation nasal spray Administer 2 Sprays in each nostril 2 times daily. 1 mL 2 5 Active mometasone-form oterol (Dulera) 200-5 mcg/actuation inhalerIndicati ons:Subacute cough Take 2 Puffs by inhalation 2 times daily. 13 Gram 9 5 Active pantoprazole (Protonix) 40 mg Tablet, Delayed Release (E.C.) Take 1 Tablet (40 mg) by mouth daily. 90 Tablet 6 5 Active fluticasone propionate (FLONASE) 50 mcg/spray [place], Suspension nasal inhaler Administer 2 Sprays in each nostril daily. 16 Gram 7 5 Active Active Problems Problem Noted Date Diagnosed Date Repetitive motion disorder 12/27/2011 Contraceptive management 12/27/2011 Hand pain 12/27/2011 Encounters Date Type Department Care Team Description 02/25/2025 External Device Data [facility]STRACTION Provider, Abstract 02/24/2025 External Device Data [facility] Provider, Abstract 02/03/2025 External Device Data [facility] Provider, Abstract 01/27/2025 External Device Data [facility] Provider, Abstract 01/01/2025 External Device Data [facility] Provider, Abstract 12/31/2024 External Device Data [facility] Provider, Abstract 12/30/2024 External Device Data [facility] Provider, Abstract 12/27/2024 9:00 AM CDT Video Visit [facility] [address] [place] [address] Kelle Melo MD Mild intermittent asthma without complication (Primary Dx); Subacute cough; Gastroesophageal reflux disease, unspecified whether esophagitis present; Allergic rhinitis, unspecified seasonality, unspecified trigger from Last 3 Months Immunizations Immunization Administration Dates Next Due (M-M-R II/PRIORIX)(12 MO UP) MEASLES, MUMPS AND RUBELLA VIRUS VACCINE, 0.5 ML IM/SUBCUT 09/17/1995,01/08/1992 (TDVAX)(7 YRS UP) TETANUS AN D DIPHTHERIA TOXOIDS, ADSORBED (2 LF OF TETANUS TOXOID AND 2 LF OF DIPHTHERIA TOXOID), 0.5ML (PF), IM 03/10/2003 Dt Dtp Dtap Vaccine 09/17/1995, 3,03/13/1991,1990,1990 HIB, Unspecified Formulation 03/24/1993,03/13/19 91,01/03/1991 Hepatitis B Vaccine 04/18/1996,01/18/1994,1993 IPV/OPV 03/24/1993, 1,01/03/1991,1990 Family History Medical History Relation Name Comments Healthy Father Unknown Maternal Grandfather Other Maternal Grandmother brain a nuerysm, leukemia Other Mother spider veins Diabetes Paternal Grandfather Diabetes Paternal Grandmother Breast Cancer Neg Hx Colon Cancer Neg Hx Relation Name Status Comments Father Maternal Grandfather Maternal Grandmother Mother Paternal Grandfather Paternal Grandmother Social History Tobacco Use Types Packs/Day Years Used Date Smoking Tobacco: Never Passive Smoke Exposure: Past Smokeless Tobacco: Never Tobacco Cessation:Counseling Given: Not Answered Alcohol Use Standard Drinks/Week Comments No 0 (1 standard drink = 0.6 oz pur e alcohol) Comments Unknown Sex and Gender Information Value Date Recorded Sex Assigned at Not on file 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 Gender Identity Not on file Sexual Orientation Not on file Last Filed Vital Signs Vital Sign Reading Time Taken Comments Blood Pressure 118/76 09/25/2024 9:46 AM AUTOMOTIVE TIRE TESTING SUPERVISOR Pulse 100 09/25/2024 9:46 AM AUTOMOTIVE TIRE TESTING SUPERVISOR Temperature - - Respiratory Rate - - Oxygen Saturation 100% 09/25/2024 9:46 AM AUTOMOTIVE TIRE TESTING SUPERVISOR Inhaled Oxygen Concentration - - Weight 79.7 kg (175 lb 9.6 oz) 09/25/2024 9:46 A M AUTOMOTIVE TIRE TESTING SUPERVISOR Height - - Body Mass Index - - Plan of Treatment Health Maintenance Due Date Last Done Comments HPV/Cotest (21-29) 2011 CERVICAL CANCER SCREENING 2020 HPV/Cotest (30-65) 2020 PAP SMEAR 2020 COVID-19 Vaccine (2023- season) 2024 04/29/2021, 03/28/2021 Preventative Visit- Commercial 08/13/2024 08/27/2012 INFLUENZA VACCINE (#1) 2025 , 07/10/2017, 06/06/2015, Additional history exists DTAP/TDAP/TD VACCINES (8 - Td or Tdap) 02/22/2030 02/23/2020, 05/29/2017, 03/10/2003, Additional history exists HEPATITIS B VACCINES Completed 04/18/1996, 04/18/1996, 01/18/1994, Additional history exists HPV VACCINES Aged Out No longer eligi ble based on patient's age to complete this topic Insurance [facility] [employer] PPO [facility] [employer] [place] MEDICAID Care Teams Stonemason Apprentice Relationship Specialty Start Date End Date Meghana Pearson MD [address] [phone] PCP - General Family Practice 09/18/13
--- OUTSIDE RECORDS SUMMARY | 2025-03-01 23:06 | XMS_ITS | Encounter Summary ---
Author Organization [facility] Address [address] [place] [address] Care Team Providers Care Expeller Worker Name Role Phone Meghana Pearson MD Primary Care Provider Encounter Details Date Type Department Care Team (Latest Contact Info) Description 09/16/[address] 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
--- OUTSIDE RECORDS SUMMARY | 2025-03-01 23:06 | XMS_ITS | Data Portability ---
Author Organization DEVYN Ivan Perez [facility], [facility] Address [address] [address] Care Team Providers Care Retail Pricing Coordinator Name Role Phone DEVAUGHN HIGHTOWER Primary Care Provider Unavaila ble Assessment No assessment recorded. Plan of Treatment Reminders Order Date Submit Date Provider Last Modified By Organization Details Last Modified Time Details Appointments OFFICE VISIT 2024 02:40P Dung Hightower MD Not available Not available Not available Lab rapid flu (A+B), PCR 2024 025 [email or web address] [facility] ([facility]), [address] [place], [address], 09/11/2024 15:57:12 CBC 2024 025 [facility], [address] [place] [address] 1, [place], [address], 2024 15:48:37 SARS CoV 2 RNA, QL, nasophary nx [address] [facility] [address] [email or web address] [facility] ([facility]), [address] [place], [address], 08/24/2024 07:58:41 rapid flu (A+B), PCR 2024 025 [email or web address] [facility] ([facility]), [address] [place], [address], 08/24/2024 07:58:41 Referral None recorded. Procedures None recorded. Surgeries None recorded. Imaging None recorded. Medication Orders prednison e 20 mg tablet 2024 025 [id number], [address], [address], [place], [address], 09/11/2024 11:16:58 Ventolin HFA 90 mcg/actua tion aerosol inhaler 2024 025 [id number], [address], [address], [place], [address], 08/15/2024 16:59:17 prednison e 10 mg tablet 2024 025 [id number], [address], [address], [place], [address], 2024 15:26:17 benzonata te 100 mg capsule 2024 025 [id number], [address], [address], [place], [address], 08/15/2024 16:59:18 azithromy juana 250 mg tablet 2023 025 [facility], [address], [place], [address], 08/15/2024 17:06:58 Patient TargetsNo targets recorded. Patient Instructions Encounter Date Encounter Id Patient Instructions Last Modified By Organization Details Last Modified Time 08/15/2024 [id number] Increase fluids and follow up for worsening [email or web address] Not available 08/15/2024 18:12:47 Reason for Referral None Reported. Results Created Date Observation Date Name Description Value Unit Range Abnormal Flag Note LastModifiedBy Organization Detail LastModifiedTime 05/28/20 24 05/28/2024 CBC WBC 9.9 x10 4.0-10 .5 Not Available [facility] [address], [place], [address], 05/28/2024 12:33:56 05/28/2005/28/2024 CBC RBC 4.61 x10 3.50-5 .50 Not Available [facility] [address] [facility] [address], [place], [address], 05/28/2024 12:33:56 05/28/2005/28/2024 CBC HGB 10.6 g/dL 12.0-1 6.0 low Not Available [facility] [address], [place], [address], 05/28/2024 12:33:56 05/28/2005/28/2024 CBC HCT 33.7 % 37.0-4 7.0 low Not Available [facility] [address] [facility] 1, [place], [address], 05/28/2024 12:33:56 05/28/2005/28/2024 CBC MCV 73.1 fL 80.0-9 9.9 low Not Available [facility] [address] [facility] 1, [place], [address], 05/28/2024 12:33:56 05/28/2005/28/2024 CBC MCH 23.0 pg 27.0-3 2.0 low Not Available [facility] [address], [place], [address], 05/28/2024 12:33:56 05/28/2005/28/2024 CBC MCHC 31.4 g/dL 32.0-3 6.0 low Not Available [facility] [address] [facility] [address], [place], [address], 05/28/2024 12:33:56 05/28/2005/28/2024 CBC RDW 28.3 % 11.5-1 4.5 high Not Available [facility] [address] [facility] 1, [place], [address], 05/28/2024 12:33:56 05/28/2005/28/2024 CBC plt 284.7 x10 140.0- 451.0 Not Available [facility] [address] [facility] 1, [place], [address], 05/28/2024 12:33:56 05/28/2005/28/2024 CBC lymphocytes % 18.6 % 20.0-5 0.0 low Not Available [facility] [address] [facility] 1, [place], [address], 05/28/2024 12:33:56 05/28/2005/28/2024 CBC granulcytes % 68.5 % 30.0-7 0.0 Not Available [facility] [address] [facility], [place], [address], 05/28/2024 12:33:56 05/28/2005/28/2024 CBC monocytes % 7.8 % 2.0-16 .0 Not Available [facility] [address] [facility], [place], [address], 05/28/2024 12:33:56 05/28/2005/28/2024 CBC granulcytes# 6.8 x10 Not Maki ilable [facility] [address] [facility] 1, [place], [address], 05/28/2024 12:33:56 05/28/2005/28/2024 CBC lymphocytes # 1.8 x10 Not Available [facility] [address] [facility] 1, [place], [address], 05/28/2024 12:33:56 05/28/20 24 05/28/2024 CBC monocytes # 0.8 x10 Not Avai lable [facility] [address] [facility] [address], [address], 05/28/2024 12:33:56 06/10/20 24 06/10/2024 rapid strep group A, throa t Strep negati ve Not Available [facility] ([facility]) [address] [place], [address], 06/10/2024 10:21:11 07/16/20 24 07/16/2024 CBC WBC 6.1 x10 4.0-10 .5 Not Available [facility] [address] [facility] [address] [facility], [place], [address], 07/16/2024 09:54:44 07/16/20 24 07/16/2024 CBC RBC 4.49 x10 3.50-5 .50 Not Available [facility] [address] [facility] [address] [facility] 1, [place], [address], 07/16/2024 09:54:44 07/16/20 24 07/16/2024 CBC HGB 11.8 g/dL 12.0-1 6.0 low Not Available [facility] [address] [facility] [address] [facility], [place], [address], 07/16/2024 09:54:44 07/16/20 24 07/16/2024 CBC HCT 35.1 % 37.0-4 7.0 low Not Available [facility] [address] [facility] [address] [facility], [place], [address], 07/16/2024 09:54:44 07/16/20 24 07/16/2024 CBC MCV 78.1 fL 80.0-9 9.9 low Not Available [facility] [address] [facility] [address] [facility], [place], [address], 07/16/2024 09:54:44 07/16/20 24 07/16/2024 CBC MCH 26.2 pg 27.0-3 2.0 low Not Available [facility] [address] [facility] 1, [place], [address], 07/16/2024 09:54:44 07/16/20 24 07/16/2024 CBC MCHC 33.5 g/dL 32.0-3 6.0 Not Available [facility] [address] [facility] 1, [place], [address], 07/16/2024 09:54:44 07/16/20 24 07/16/2024 CBC RDW 17.0 % 11.5-1 4.5 high Not Available [facility] [address] [facility] [address] [facility] 1, [place], [address], 07/16/2024 09:54:44 07/16/20 24 07/16/2024 CBC plt 220.9 x10 140.0- 451.0 Not Available [facility] [address] [facility] 1, [place], [address], 07/16/2024 09:54:44 07/16/20 24 07/16/2024 CBC lymphocytes % 26.4 % 20.0-5 0.0 Not Available [facility] [address] [facility] 1, [place], [address], 07/16/2024 09:54:44 07/16/20 24 07/16/2024 CBC granulcytes % 56.9 % 30.0-7 0.0 Not Available [facility] [address] [facility] 1, [place], [address], 07/16/2024 09:54:44 07/16/20 24 07/16/2024 CBC monocytes % 9.1 % 2.0-16 .0 Not Available [facility] [address] [facility] [address], [place], [address], 07/16/2024 09:54:44 07/16/20 24 07/16/2024 CBC granulcytes# 3.5 x10 Not Maki ilable [facility] [address], [place], [address], 07/16/2024 09:54:44 07/16/20 24 07/16/2024 CBC lymphocytes # 1.6 x10 Not Available [facility] [address] [facility] 1, [place], [address], 07/16/2024 09:54:44 07/16/20 24 07/16/2024 CBC monocytes # 0.6 x10 Not Avai lable [facility] [address] [facility] 1, [place], [address], 07/16/2024 09:54:44 08/15/19 25 08/15/2024 rapid flu (A+B) , PCR Influenza A negati ve Not Available [facility] ([facility]) [address] [place] [address], [address], 08/15/2024 16:34:56 08/15/19 25 08/15/2024 rapid flu (A+B) , PCR Influenza B negati ve Not Available [facility] ([facility]) [address] [place] [address], [address], 08/15/2024 16:34:56 08/15/19 25 08/15/2024 SARS CoV 2 RNA, QL, nasop haryn x COVID negati ve Not Available [facility] ([facility]) [address] [place] [address], [address], 08/15/2024 16:34:48 09/03/19 25 2024 CBC WBC 10.1 x10 4.0-10 .5 Not Available [facility] [address] [facility] 1, [place], [address], 2024 15:48:37 09/03/19 25 2024 CBC RBC 4.62 x10 3.50-5 .50 Not Available [facility] [address] [facility] 1, [place], [address], 2024 15:48:37 09/03/19 25 2024 CBC HGB 13.1 g/dL 12.0-1 6.0 Not Available [facility] [address] [facility] 1, [place], [address], 2024 15:48:37 09/03/19 25 2024 CBC HCT 37.3 % 37.0-4 7.0 Not Available [facility] [address] [facility] 1, [place], [address], 2024 15:48:37 09/03/19 25 2024 CBC MCV 80.7 fL 80.0-9 9.9 Not Available [facility] [address] [facility] 1, [place], [address], 2024 15:48:37 09/03/19 25 2024 CBC MCH 28.3 pg 27.0-3 2.0 Not Available [facility] [address] [facility] 1, [place], [address], 2024 15:48:37 09/03/19 25 2024 CBC MCHC 35.0 g/dL 32.0-3 6.0 Not Available [facility] [address] [facility] 1, [place], [address], 2024 15:48:37 09/03/19 2024 CBC RDW 14.8 % 11.5-1 4.5 high Not Available [facility] [address] [facility] 1, [place], [address], 2024 15:48:37 09/03/19 25 2024 CBC plt 266.7 x10 140.0- 451.0 Not Available [facility] [address] [facility] 1, [place], [address], 2024 15:48:37 09/03/19 25 2024 CBC lymphocytes % 21.9 % 20.0-5 0.0 Not Available [facility] [address] [facility] 1, [place], [address], 2024 15:48:37 09/03/19 25 2024 CBC granulcytes % 65.9 % 30.0-7 0.0 Not Available [facility] [address] [facility] 1, [place], [address], 2024 15:48:37 09/03/19 25 2024 CBC monocytes % 8.1 % 2.0-16 .0 Not Available [facility] [address] [address], [place], [address], 2024 15:48:37 09/03/19 25 2024 CBC granulcytes# 6.7 x10 Not Maki ilable [facility] [address] [address], [place], [address], 2024 15:48:37 09/03/19 25 2024 CBC lymphocytes # 2.2 x10 Not Available [facility] [address] [address], [place], [address], 2024 15:48:37 09/03/19 25 2024 CBC monocytes # 0.8 x10 [facility] [address] [place] [address] 1, [place], [address], 2024 15:48:37 09/11/19 25 09/11/2024 rapid flu (A+B) , PCR Influenza A negati ve Not Available [facility] ([facility]) [address] [place] [address], [address], 09/11/2024 10:51:37 09/11/19 25 09/11/2024 rapid flu (A+B) , PCR Influenza B negati ve Not Available [facility] ([facility]) [address] [place] [address], [address], 09/11/2024 10:51:37 Result Notes None recorded. Problems Name Problem SNOMED Code Status Onset Date Resolution Date Notes Provider Name and Address Organization Details Recorded Time Acute upper respiratory infection 87500286 Active 2022 Moises Whitney DO [address] [place] [address], [address], [facility] 3 11:41:30 Bronchitis 78770104 Active 2023 Hector White MD [address] [place] [address], [address], [facility] 4 08:47:12 Chronic cough 44482585 Active 2023 SHANNA del cid [facility] 4 10:00:16 Iron deficiency anemia 31792430 Active 2023 SHANNA del cid [facility] 4 09:27:52 Acute bronchitis with bronchospasm 20694048 Active 2024 Hector White MD [address] [place] [address], [address], [facility], Monique 5 11:16:49 Problem Notes None recorded. Procedures Surgical History Date Name Laterality Status Provider Name and Address Organization Details Recorded Time 2023 Colon[facility] completed [facility] 4 15:43:49 2023 esophagogastroduodenoscopy completed IBRAHIMA WAGOGNER [facility], LHollyLHollyCHolly 4 15:47:48 Imaging Results None recorded. Procedure Notes None recorded. Medical Equipment None Reported. Allergies Allergen ID Allergen Name Allergen Category Reaction Reaction Severity Criticality Documentation Date Start Date Code Code System Note Provider Name and Address Organization Details Recorded Time 74021 Silver and/or silver compound (substanc e) medicatio n rash mild low 03/10/2023 36792 1005 SNOMED Clara del cid [facility], Monique 4 14:40:50 77796 terbinafi ne medicatio n hives mild low 03/10/2023 96410 RxNorm Clara Varela [facility], LukeCHolly 4 14:40:55 [address] Product containin g penicilli n (product) medicatio n Not available Not available Not available 03/10/2023 27074 8001 [address] Clarajanell del cid [facility], FreddyLAdrian 4 14:40:43 Medications Name Sig Start Date Stop Date Status Note LastModified by Organization Details LastModified Time promethaz ine-DM 6.25 mg-15 mg/5 mL oral syrup TAKE 5 ML BY MOUTH EVERY 4 TO 6 HOURS NEEDED FOR COUGH 03/31 completed Not Available Not Available Not Available prednison e 10 mg tablet Take 2 tablets daily for 4 days and 1 tablet daily for 4 days 09/03 completed Not Available Not Available Not Available doxycycli ne hyclate 100 mg capsule TAKE 1 CAPSULE BY MOUTH TWICE DAILY FOR 10 DAYS 03/31 completed Not Available Not Available Not Available azithromy juana 250 mg tablet TAKE 2 TABLETS BY MOUTH ON DAY 1, AND THEN TAKE 1 TABLET BY MOUTH ONCE A DAY ON DAY 2 THROUGH DAY 5 08/15 completed Not Available Not Available Not Available ibuprofen 800 mg tablet TAKE 1 TABLET BY MOUTH THREE TIMES DAILY 04/30 completed Not Available Not Available Not Available benzonata te 200 mg capsule TAKE 1 CAPSULE BY MOUTH THREE TIMES DAILY NEEDED FOR 10 DAYS 08/15 completed Not Available Not Available Not Available hydrocodo ne 5 mg-acetam inophen 325 mg tablet TAKE 1 TABLET BY MOUTH EVERY 4 HOURS NEEDED FOR PAIN FOR 7 DAYS 04/30 completed Not Available Not Available Not Available prednison e 20 mg tablet TAKE 2 TABLETS BY MOUTH EVERY DAY FOR 5 DAYS active Not Available Not Available No t Available Advair Diskus 100 mcg-50 mcg/dose powder for inhalatio n INHALE 1 PUFF BY MOUTH TWICE A DAY active Not Available Not Available No t Available Zyrtec 10 mg tablet qd active Not Available Not Available No t Available amitripty line 50 mg tablet TAKE 1 TABLET BY MOUTH EVERY DAY active Not Available Not Available No t Available triamcino lone acetonide 0.1 % topical cream APPLY THIN COAT TO AFFECTED AREA TWICE A DAY 04/30 completed Not Available Not Available Not Available acyclovir 800 mg tablet TAKE 1 TABLET 5 TIMES DAILY 03/22 completed Not Available Not Available Not Available prednison e 10 mg tablets in a dose pack 04/30 completed Not Available Not Available Not Available amitripty line 25 mg tablet TAKE 1/2 TO 1 TABLET BY MOUTH AT BEDTIME NEEDED 06/10 completed Not Available Not Available Not Available benzonata te 100 mg capsule Take 1 capsule 3 times a day by oral route as needed for 10 days. active Not Available Not Available No t Available pantopraz ole 40 mg tablet,de layed release TAKE 1 TABLET BY MOUTH EVERY DAY active Not Available Not Available No t Available ferrous sulfate 325 mg (65 mg iron) tablet TAKE 1 TABLET BY MOUTH TWICE A DAY active Not Available Not Available No t Available diclofena c sodium 75 mg tablet,de layed release TAKE 1 TABLET BY MOUTH TWICE A DAY 04/30 completed Not Available Not Available Not Available azelastin e 137 mcg (0.1 %) nasal spray USE 2 SPRAY(S) IN EACH NOSTRIL TWICE DAILY active Not Available Not Available No t Available albuterol sulfate HFA 90 mcg/actua tion aerosol inhaler INHALE 2 PUFFS BY MOUTH EVERY 4 HOURS FOR 7 DAYS active Not Available Not Available No t Available ferrous sulfate 325 mg (65 mg iron) tablet,de layed release Take 1 tablet by mouth twice daily 2023 active vo JR/tn Not Available Not Available Not Avai lable propranol ol 20 mg tablet TAKE 1 TABLET BY MOUTH TWICE A DAY NEEDED active Not Available Not Available No t Available fluticaso ne propionat e 50 mcg/actua tion nasal spray,oziel pension USE 2 SPRAYS IN EACH NOSTRIL ONCE DAILY. active Not Available Not Available No t Available fluticaso ne propionat e 110 mcg/actua tion HFA aerosol inhaler Inhale 1 puff twice a day by inhalati on route. 06/10 completed vo JR/tn Not Available Not Available Not Available escitalop janna 10 mg tablet Take 1 tablet by mouth once daily 06/10 completed Not Available Not Available Not Available duloxetin e 30 mg capsule,d elayed release Take 1 capsule by mouth once daily 2024 active vo JR/tn Not Available Not Available Not Avai lable duloxetin e 60 mg capsule,d elayed release TAKE 1 CAPSULE BY MOUTH EVERY DAY active Not Available Not Available No t Available magnesium active Not Available Not Maki ilable Not Available albuterol sulfate every six hours, as needed 04/30 completed Recorded 10/06/19 23 5:58PM by SERA Acevedo, Office Visit; Refill Quantity : 0; Not Available Not Available Not Available amitripty line 1/2 to 1 tab QHS prn 04/30 completed vo JR/tn; 173; Recorded 09/19/19 23 1:39PM by Анна sheppard (Authori judi through Devaughn Hightower MD), Refill Request; Refill Quantity : 30; Tablet; Not Available Not Available Not Available Asmanex Twisthale r 110 mcg/actua tion(30 doses) breath activated inhalr Inhale 1 puff twice a day by inhalati on route. 06/10 completed VO JR/bh Not Available Not Available Not Available Dulera 200 mcg-5 mcg/actua tion HFA aerosol inhaler TAKE 2 PUFFS BY MOUTH TWICE DAILY active Not Available Not Available No t Available Venofer 200 mg iron/10 mL intraveno us solution 200mg Infusion every week x 5 weeks. 06/10 completed No PA required . Ref # [id number] Not Available Not Available Not Available Jencycla 0.35 mg tablet TAKE 1 TABLET BY MOUTH EVERY DAY active Not Available Not Available No t Available Vitals Date Recorded Body height Body mass index (BMI) Body weight Oxygen saturation Oxygen saturation in Arterial blood by Pulse oximetry Heart rate Body temperature Systolic And Diastolic Provider Name and Address Organization Details Last Updated DateTime 5 167.64 cm 27.1 kg/m2 59312.2 2 g 98 % 98 % 121 /min 98.6 [degF] 110/70 mm[Hg] [facility] 5 16:27:10 Date Recorded Body height Body mass index (BMI) Body weight Oxygen saturation Oxygen saturation in Arterial blood by Pulse oximetry Heart rate Respiratory rate Body temperature Systolic And Diastolic Provider Name and Address Organization Details Last Updated DateTime 5 167.64 cm 27.2 kg/m2 00551.9 2 g 98 % 98 % 84 /min 18 /min 98.2 [degF] 110/60 mm[Hg] АННА GRIJALVA [facility] 5 15:32:07 Date Recorded Body height Body mass index (BMI) Body weight Oxygen saturation Oxygen saturation in Arterial blood by Pulse oximetry Body temperature Heart rate Systolic And Diastolic Provider Name and Address Organization Details Last Updated DateTime 5 167.64 cm 27.3 kg/m2 48817.8 1 g 98 % 98 % 98.2 [degF] 82 /min 116/80 mm[Hg] [facility] 5 10:51:23 Date Recorded Body height Body mass index (BMI) Body weight Body temperature Respiratory rate Heart rate Oxygen saturation Oxygen saturation in Arterial blood by Pulse oximetry Provider Name and Address Organization Details Last Updated DateTime 4 167.64 cm 26.8 kg/m2 38603.3 3 g 99.4 [degF] 17 /min 96 /min 99 % 99 % WALDO SAAB [facility] 4 17:04:14 Social History None recorded. Functional Status Question Answer Note LastModified by Organizat ion Details LastModified Time Do you use any illicit or recreational drugs? No [email or web address] Information not available 02/28/2024 What is your level of alcohol consumption? None [email or web address] Information not available 02/28/2024 Mental Status None recorded. Family History Nothing Reported. Medical History No medical history recorded. Gynecological HistoryNo gynecological history recorded. Obstetrics History GPAL:G 0 P 0 0 0 0 Immunizations Vaccine Type Date Status Note Provider Nam e and Address Organization Details Recorded Time MMR 6 completed AMANDO del cid [facility] 02/28/2024 16:08:20 MMR 2 completed AMANDO del cid [facility] 02/28/2024 16:08:20 COVID-19, mRNA, LNP-S, PF, 100 mcg/0.5mL dose or 50 mcg/0.25mL dose 1 completed AMANDO del cid [facility] 02/28/2024 16:08:20 COVID-19, mRNA, LNP-S, PF, 100 mcg/0.5mL dose or 50 mcg/0.25mL dose 1 completed AMANDO del cid [facility] 02/28/2024 16:08:20 Hep B, unspecified formulation 4 completed AMANDO del cid [facility] 02/28/2024 16:08:20 Hep B, unspecified formulation 4 completed AMANDO CASTANEDA null, [facility] 02/28/2024 16:08:20 Hep B, unspecified formulation 6 completed AMANDO CASTANEDA null, [facility] 02/28/2024 16:08:20 OPV 1 completed AMANDO CASTANEDA null, [facility] 02/28/2024 16:08:20 OPV 1 completed AMANDO CASTANEDA null, [facility] 02/28/2024 16:08:20 OPV 1 completed AMANDO CASTANEDA null, [facility] 02/28/2024 16:08:20 OPV 3 completed AMANDO CASTANEDA null, [facility] 02/28/2024 16:08:20 Influenza, split virus, trivalent, preservative 5 completed AMANDO CASTANEDA null, [facility] 02/28/2024 16:08:20 Hib (PRP-T) 1 completed AMANDO CASTANEDA null, [facility] 02/28/2024 16:08:20 Hib (PRP-T) 1 completed AMANDO CASTANEDA null, [facility] 02/28/2024 16:08:20 Hib (PRP-T) 3 completed AMANDO CASTANEDA null, [facility] 02/28/2024 16:08:20 DTaP 6 completed AMANDO CASTANEDA null, [facility] 02/28/2024 16:08:20 DTaP 1 completed AMANDO CASTANEDA null, [facility] 02/28/2024 16:08:20 DTaP 1 completed AMANDO CASTANEDAESTHER del cid, [facility] 02/28/2024 16:08:20 DTaP 1 completed AMANDO del cid, [facility] 02/28/2024 16:08:21 DTaP 3 completed AMANDO del cid, [facility] 02/28/2024 16:08:21 Influenza, MDCK, quadrivalent, PF 0 completed Not Available [facility] 03/10/2023 02:29:27 Tdap 7 completed Not Available [facility] 03/10/2023 02:29:29 Tdap 0 completed Not Available [facility] 03/10/2023 02:29:29 Influenza, split virus, trivalent, preservative 7 completed Not Available [facility] 03/10/2023 02:29:31 Past Encounters Encounter ID Performer Location Encounter Start Date Encounter Closed Date Diagnosis/Indication Diagnosis SNOMED-CT Code Diagnosis ICD10 Code Diagnosis Note [id number] JOAQUÍN OVALLES PA-C [facility] ([facility]) [address] [place] [phone] 12/25/2022 14:04:00 12/25/2022 18:51:25 Contact dermatitis 82676068 L25.9 [id number] Moises Whitney DO [facility] ([facility]) [address] [place] [phone] 04/30/2023 09:23:00 04/30/2023 11:52:06 Fever 156310262 R50.9 Acute uppe r respiratory infection [id number] J06.9 rapid strep and covid negative today. The patient on diagnosis of viral upper respirator y illness patient is to rest and take ibuprofen Motrin as needed. Increase fluids. Monitor for signs and symptoms of worsening and return if needed. [id number] SERA HERRERA [facility] ([facility]) [address] [place] [address] 16623-777 5 06/24/2023 15:00:26 06/24/2023 16:48:45 Acute bronchitis [id number] J20.9 [id number] SAMANTHA RODRIGUES [facility] ([facility]) [address] [place] [address] 51020-959 5 07/31/2023 17:40:09 08/19/2023 06:35:16 Sore throat [id number] J02.9 Negative strep test. Negative COVID test. Viral syndrome [id number] B34.9 Reassured with negative strep test and negative COVID test today. Discussed with patient that this is likely viral and will have to run its course. Can take tylenol/ib uprofen as needed for pain and fevers. Can use benzonatat e PRN for cough. If worsening condition or no improvemen t in 7-10 days, return for further evaluation . Atopic dermatitis 600898 01 L20.9 Patient was given moisturize r samples for dry skin. If this does not improve in 1-2 weeks, should follow up with PCP. Patient is agreeable to plan of care. [id number] Hector White MD [facility] ([facility]) [address] [place] [address] 83030-948 5 02/28/2024 16:03:19 02/28/2024 17:09:49 Bronchitis [id number] J40 Given the patient's presentati on and duration of symptoms and provide treatment for atypical organisms. Will start with azithromyc in and provide Tessalon Perles to help with cough.. Plenty of fluids and rest. Follow-up if symptoms do not improve or significan tly worsen. [id number] MEENA WALTERS [employer] [facility] ([facility]) [address] [place] [address] 94082-971 5 03/22/2024 12:02:50 03/22/2024 13:17:26 Acute bronchitis 01775825 J20.9 [id number] [employer] [facility] ([facility]) [address] [place] [address] [phone] 5 03/31/2024 12:14:52 03/31/2024 13:34:27 Asthma [id number] J45.909 Discussed pt presentati on with Dr. Hightower, PCP. Agree on PFT's and starting daily fluticason e.Discusse d with patient regarding daily use of fluticason e and using albuterol PRN as her rescue inhaler. Pt has appt scheduled with PCP next month. She is to keep track of how many times she uses her rescue inhaler. [id number] Devaughn Hightower MD [facility] ([facility]) [address] [place] [address] [phone] 5 04/17/2024 12:03:40 04/17/2024 14:14:52 Cough 15565064 R05.9 Painless r ectal bleeding 340256884 K62.5 Chronic cough 72601853 R 05.3 Dyspnea 395961513 R06.00 Anxiety 54207100 F41.9 Anemia 227884556 D64.9 [id number] Devaughn Hightower MD [facility] ([facility]) [address] [place] [address] 17108-403 5 04/24/2024 13:35:23 04/24/2024 14:33:13 Anemia 806948194 D64.9 Abdominal pain 02230186 R10.9 [id number] Devaughn Hightower MD [facility] ([facility]) [address] [place] [address] 47900-512 5 05/01/2024 11:40:23 05/01/2024 12:34:02 Iron deficiency anemia 15466491 D50.9 [id number] Devaughn Hightower MD [facility] ([facility]) [address] [place] [address] 66903-572 5 05/01/2024 11:32:57 05/02/2024 11:15:59 Iron deficiency anemia 52388877 D50.9 [id number] Devaughn Hightower MD [facility] ([facility]) [address] [place] [address] 49758-593 5 05/07/2024 11:11:46 05/07/2024 13:05:43 Iron deficiency anemia 08416578 D50.9 [id number] Devaughn Hightower MD [facility] ([facility]) [address] [place] [address] 75091-682 5 05/28/2024 12:10:56 05/28/2024 14:31:03 Iron deficiency anemia 80807166 D50.9 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 Take with food.May use Darnell's nasal inserts and also apply on chest. Push oral fluids. Consider nasal saline rinses and otc decongesta nt.Use tylenol/mo bette for bolden. [id number] MAL WINTER [employer] [facility] ([facility]) [address] [place] [address] [phone] 5 06/22/2024 16:50:39 06/22/2024 17:32:29 Acute bacterial bronchitis 695030563 J20.9 Increase po fluids. Rest. [id number] LISSY MCADAMS APRN [facility] ([facility]) [address] [place] [address] 42135-660 5 08/15/2024 16:17:38 08/15/2024 18:13:44 Cough 14716243 R05.9 Fever 828127390 R50.9 Viral syndrome 287060545 B34.9 [id number] Devaughn Hightower MD [facility] ([facility]) [address] [place] [address] 29396-166 5 2024 15:06:51 2024 16:05:25 Iron deficiency anemia 02427382 D50.9 [id number] Devaughn Hightower MD [facility] ([facility]) [address] [place] [address] [phone] 5 2024 15:08:41 09/04/2024 11:39:35 Iron deficiency anemia 68714996 D50.9 [id number] Hector White MD [facility] ([facility]) [address] [place] [address] 09/11/2024 10:28:28 09/15/2024 08:38:21 Cough 38332516 R05.9 Acute bron chitis with bronchospasm 74300808 J20.9 Likely viral infection. Discussed supportive care including over-the-c ounter medication to help with symptoms. Continue other supportive care. Patient has found steroids to be beneficial to help with symptoms. Health Concerns Section Related Observation LastModified by Organization Detai ls LastModified Time None Recorded Concern Status LastModified by Organization Details LastModified Time None Recorded Advance Directives Directive None Recorded Payers Insurance Date Sequence Insurance Name Policy Number Policy [place] Covered Member ID [place] Member ID Guarantor Name 02/28/2025 [place] [facility] [id number] Tanner Shultz [id number] Tanner Shultz 07/18/2023 [place] [facility] [id number] Tanner Shultz [id number] Tanner Shultz 02/28/2025 [place] [id number] Tanner Shultz [id number] Tanner Shultz 02/28/2025 1 [place] [id number] Franki Shultz [id number] Tanner Shultz 02/28/2025 2 [employer] [place] - [place] [id number] Tanner Shultz [id number] Tanner Shultz Notes Date Note Type Note Provider Name and Address Organization Details Recorded Time 06/22/2024 text/html Sore ThroatRepor cong bypatient.Location:b ilateral Duration:started day(s) ago Quality:hoarseness Severity:moderate Context:others with similar symptoms Associated Symptoms:fever;cough Notes:Cough has occurred for 2-3 weeks without improvement. Patient states that she's had a fever and sore throat for several days. She also has a cough and has been getting headaches. One of her children has tested positive for strep throat. MAL WINTER, [employer] P[employer] [address] [place], [address], [facility] 06/22/2024 17:25:58 08/15/2024 text/html walk inx 1 week dry cough, nasal congestion, BOLDEN, body aches, fevers, LISSY MCADAMS, REGIONAL REHABILITATION DIRECTOR [address] [place], [address], [facility] 08/15/2024 18:13:05 2024 text/html AnemiaReported bypatient.Duration:c onstant Timing:better Modifying Factors:Rx medication Associated Symptoms:no chest pain; no nausea; no vomiting; no weakness; no fatigue;shortness of breath during exertion;palpitation s(with anxiety) Prior Tests:lower endoscopy; Upper endoscopy Pt will only have rectal bleeding if she is constipated.Pt will be seeing the safety and health manager in Sep. Devaughn Hightower MD [address] [place] [address], [phone], [facility] 2024 15:58:53 09/11/2024 text/html walk inx 1 day cough, sore throat, BOLDEN, body aches, nasal congestion Hector White MD [address] [place] [address], [phone], [facility] 09/14/2024 08:58:56 OBGyn Episode No OBEpisode recorded.
--- OUTSIDE RECORDS SUMMARY | 2025-03-01 23:06 | XMS_ITS | Encounter Summary ---
Author Organization [facility] Address [address] [place] [address] Care Team Providers Care Supervisor Quality Control Name Role Phone Meghana Pearson MD Primary Care Provider [phone] Encounter Details Date Type Department Care Team (Latest Contact Info) Description 11/04/2003 Outpatient [facility] Medicine [place] [address] [address] Brandt Moore DO NO ADDRESS ON FILE EPISTAXIS (Primary Dx); OTHER MALAISE AND FATIGUE; FEVER; ACUTE TONSILLITIS Social History Tobacco Use Types Packs/Day Years Used Date Smoking Tobacco: Never Assessed Comments Unknown Sex and Gender Information Value Date Recorded Sex Assigned at Not on file 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
--- OUTSIDE RECORDS SUMMARY | 2025-03-01 23:06 | XMS_ITS | Encounter Summary ---
Author Organization [facility] Address [address] [place] [address] Care Team Providers Care Substitute Crossing Guard Name Role Phone Meghana Pearson MD Primary Care Provider Encounter Details Date Type Department Care Team (Latest Contact Info) Description 10/29/2003 Outpatient [facility] Medicine [place] [address] [address] Valorie Eugene MD NO ADDRESS ON FILE ACUTE PHARYNGITIS (Primary Dx) Social History Tobacco Use Types Packs/Day Years Used Date Smoking Tobacco: Never Assessed Comments Unknown Sex and Gender Information Value Date Recorded Sex Assigned at Not on file 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
--- OUTSIDE RECORDS SUMMARY | 2025-03-01 23:06 | XMS_ITS | Clinical Summary ---
Author Organization [facility] Address [address] [place] [address] Care Team Providers Care Spool Salvager Name Role Phone Meghana Pearson MD Primary Care Provider Allergies Active Allergy Reactions Criticality Noted Date Comments Penicillins Other (See Comments) 12/27/2011 Doesn't know reaction, was allergic to pcn as a baby Terbinafine Hives High 12/27/2011 Medications Levonorgestrel-E thinyl Estrad (JOLESSA) 0.15-30 mg-mcg Oral 3MPk Take 1 Tab by mouth daily. 84 Tab 3 08/27/2012 Active fluconazole (DIFLUCAN) 150 mg Oral tabletIndication s:Vulvovaginitis Take 1 Tab by mouth daily. 1 Tab 1 08/27/2012 Active naproxen (NAPROSYN) 500 mg Oral tablet Take 1 Tab by mouth 2 times daily with meals. 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 Gender Identity Not on file Sexual Orientation Not on file Occupation Industry Job Start Date Job End Date Not on file Not on file Not on file Not on file Last Filed Vital Signs Vital Sign Reading Time Taken Comments Blood Pressure 137/90 09/14/2012 12:50 PM HOSPICE CONSULTANT Pulse 98 09/14/2012 12:50 PM HOSPICE CONSULTANT Temperature 36.6 C (97.9 F) 09/14/2012 12:50 PM HOSPICE CONSULTANT Respiratory Rate 16 09/14/2012 12:50 PM HOSPICE CONSULTANT Oxygen Saturation 100% 09/14/2012 12:50 PM HOSPICE CONSULTANT Inhaled Oxygen Concentration - - Weight 50 kg (110 lb 3.2 oz) 09/14/2012 12:50 PM HOSPICE CONSULTANT Height 166.4 cm (5' 5.5 ) 09/14/2012 12:50 PM CS T Body Mass Index 18.06 09/14/2012 12:50 PM HOSPICE CONSULTANT Plan of Treatment Health Maintenance Due Date Last Done Comments DTAP/TDAP/TD VACCINES (6 - Tdap) 03/11/2003 03/10/2003, 09/17/1995, 03/24/1993, Additional history exists HPV VACCINES (1 - 3-dose series) 2005 HPV/Cotest (21-29) 08/27/2017 08/27/2012 CERVICAL CANCER SCREENING 2020 HPV/Cotest (30-65) 2020 08/27/2012 PAP SMEAR 2020 08/27/2012 Preventative Visit- Commercial 08/13/2024 08/27/2012 INFLUENZA VACCINE (#1) 2025 HEPATITIS B VACCINES Completed 04/18/1996, 01/18/1994, 11/23/1993 Procedures Procedure Name Priority Date/Time Associated Diagnosis Comments CERV/VAG CYTOPATH, THIN PREP IMAGR RFLX HPV Routine 08/27/2012 3:22 PM HOSPICE CONSULTANT from Last 3 Months or Most Recently Relevant to Health Maintenance Results * CERV/VAG CYTOPATH, THIN PREP IMAGR RFLX HPV (08/27/2012 3:22 PM HOSPICE CONSULTANT) PERMIT SPECIALIST CYTOLOGY REPORT REFLEX HPV [facility] Anatomic Pathology Dept [address] [place] [phone] Patient: ALAN JACKSON Accn No: [id number] , [id number] Collected: 08/27/2012 3:22:00 PM All cases except those with a DP prefix are performed by pathologists from [facility] at [facility]. Case type DP is performed by Dr. Francisco Castellon, [facility], [facility], [address], [address], [place] [address] (CLIA #[id number]) (Ph. [phone]). PERMIT SPECIALIST PAP - REFLEX HPV History Specimen Type: Endocervical LMP: 08/16/11 Hormones/Contracep tives Previous Pap History: None Provided Specimen Adequacy Satisfactory for interpretation. The smear shows sufficient numbers of endocervical or metaplastic cells. Diagnosis NEGATIVE FOR INTRAEPITHELIAL LESION OR MALIGNANCY. (Previously noted as Within Normal Limits). Electromechanic/ SAMY Pathologist: 09/06/12 Completed by: MG BANDA BSCT(ASCP) (Electronically signed by) 09/06/12 Comment Routine follow-up is suggested. Important Information About Pap Smears The Pap smear is associated with a low but well-documented and probably irreducible false negative rate of up to 10%. Additionally, the false positive rate for a diagnosis of invasive carcinoma or HSIL has been estimated to be approximately 1-10%. Therefore, any visible lesion on the cervix should be biopsied regardless of Pap smear findings. HPV Testing off the Thin Prep vial can be done as a means of further evaluating a Thin Prep Report. For information about ordering the HPV test, phone Virology at . Treatment or follow-up recommendations (if any) that are contained within this report are based upon general recommendations as contained in 2001 Consensus Guidelines For Cervical Cytological Abnormalities ANA LAURA: December 04, 2001, and are provided as a general guideline rather than as a specific recommendation. Final decisions about the most appropriate treatment and follow-up should be made on an individualized basis by the treating physician in consultation with his/her patient. [facility] 08/27/2012 3:22 PM HOSPICE CONSULTANT Lucina Vazquez DRY CHAIN WORKER PATHOLOGY/CYTOLOG Y ORDERABLES Edited INTERFACE SYSTEM Refer to clinic/hospital department [facility] CLIA# [id number] [address] [place] [id number] from Last 3 Months or Most Recently Relevant to Health Maintenance [facility] Care Teams Spool Salvager Relationship Specialty Start Date End Date Meghana Pearson MD [address] [address] PCP - General Family Practice 09/18/13
--- OUTSIDE RECORDS SUMMARY | 2025-03-01 23:06 | XMS_ITS | Encounter Summary ---
Author Organization [facility] Address [address] [place] [address] Care Team Providers Care Tile Shader Name Role Phone Meghana Pearson MD Primary Care Provider Encounter Details Date Type Department Care Team (Latest Contact Info) Description 03/10/2003 Outpatient [facility] Family Medicine- [address] [place] [phone] Brandt Moore DO NO ADDRESS ON FILE MED EXAM NEC-ADMIN PURP (Primary Dx); VACCINE FOR TETANUS + DIPHTHERIA Social History Tobacco Use Types Packs/Day Years Used Date Smoking Tobacco: Never Assessed Comments Unknown Sex and Gender Information Value Date Recorded Sex Assigned at Not on file 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
--- OUTSIDE RECORDS SUMMARY | 2025-03-01 23:06 | XMS_ITS | Encounter Summary ---
Author Organization [facility] Address [address] [place] [address] Care Team Providers Care Cardiac Catheterization Technician Name Role Phone Meghana Pearson MD Primary Care Provider Encounter Details Date Type Department Care Team (Latest Contact Info) Description 08/26/1999 Outpatient Historical [facility] Medicine [place] [address] [address] Jones Fox MD [address] [address] Acute sinusitis, unspecified (Primary Dx); Cough Social History Tobacco Use Types Packs/Day Years Used Date Smoking Tobacco: Never Assessed Comments Unknown Sex and Gender Information Value Date Recorded Sex Assigned at Not on file 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
--- OUTSIDE RECORDS SUMMARY | 2025-03-01 23:06 | XMS_ITS | Encounter Summary ---
Author Organization [facility] Address 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
--- OUTSIDE RECORDS SUMMARY | 2025-03-01 23:06 | XMS_ITS | Encounter Summary ---
Author Organization [facility] Address [address] [place] [address] Care Team Providers Care Environmental Conservation Professor Name Role Phone Meghana Pearson MD Primary Care Provider [phone] Encounter Details Date Type Department Care Team (Latest Contact Info) Description 08/18/1999 Outpatient Historical [facility] Medicine [place] [address] [address] Sulema Cervantes NO ADDRESS ON FILE Acute sinusitis, unspecified (Primary Dx) Social History Tobacco Use Types Packs/Day Years Used Date Smoking Tobacco: Never Assessed Comments Unknown Sex and Gender Information Value Date Recorded Sex Assigned at Not on file 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
--- OUTSIDE RECORDS SUMMARY | 2025-03-01 23:06 | XMS_ITS | Encounter Summary ---
Author Organization [facility] Address [address] [place] [address] Care Team Providers Care Slubber Machine Operator Name Role Phone Meghana Pearson MD Primary Care Provider [phone] Encounter Details Date Type Department Care Team (Latest Contact Info) Description 11/02/2003 Outpatient [facility] Family Medicine- [address] [place] [address] Valorie Eugene MD NO ADDRESS ON FILE ACUTE PHARYNGITIS (Primary Dx) Social History Tobacco Use Types Packs/Day Years Used Date Smoking Tobacco: Never Assessed Comments Unknown Sex and Gender Information Value Date Recorded Sex Assigned at Not on file 

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
[2025-03-01 23:42] LABS: Hematocrit 38.3 % (36-47); Hemoglobin 12.30 g/dL (11.27-16.99); Mean Corpuscular HGB Conc 32.1 g/dL (30-55); Mean Corpuscular Hemoglobin 27.8 pg (27-33); Mean Corpuscular Volume 86.5 fl (85-98); Nucleated Red Blood Cells % 0 %; Platelet Count 296 10^3/cmm (157-399); Red Blood Count 4.43 10^6/uL (3.85-5.65); White Blood Count 13.16 10^3/uL (3.29-11.43)
[2025-03-01 23:53] LABS: HCG, Serum Qual Negative (Negative)
[2025-03-02 00:05] LABS: Alanine Aminotransferase 12 U/L (0-33); Albumin Level 4.0 g/dL (3.5-5.2); Alkaline Phosphatase 66 U/L (35-105); Anion Gap 14.3 (5-19); Aspartate Amino Transferase 15 U/L (0-32); Blood Urea Nitrogen 9 mg/dL (6-20); Calcium 9.4 mg/dL (8.5-10.5); Carbon Dioxide 27 mmol/L (22-29); Chloride 101 mmol/L (98-107); Creatinine Clr Calc Pharmacy 115.5032; Globulin 3.0 g/dL (1.3-4.6); Glucose 102 mg/dL (65-115); Osmolality Calculated 287 mOsm/kg (285-295); Potassium 3.3 mmol/L (3.5-5.1); Sodium 139 mmol/L (136-145); Total Protein 7.0 g/dL (6.6-8.7)
[2025-03-02] MEDS: acetaminophen 1,000 MG/100 ML PIGGYBACK 400 MG IV (00:25)
[2025-03-02] MEDS: LORazepam 1 MG/0.5 ML injection 0.5 MG IVP (00:25)
[2025-03-02 01:19] VITALS: BP 119/83; PULSE 92; RESP 16; O2SAT 98
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
== END 2025-03-02 01:21 | disposition home or self-care (01) ==
PROVIDERS: Emergency Provider Student in an Organized Health Care Education/Training Program; PCP Family Medicine
DX: S20.212A Contusion of left front wall of thorax, initial encounter (principal); S90.32XA Contusion of left foot, initial encounter; F41.9 Anxiety disorder, unspecified; V43.92XA Unspecified car occupant injured in collision with other type car in traffic accident, initial encounter; Z79.899 Other long term (current) drug therapy; Z88.0 Allergy status to penicillin; Z88.8 Allergy status to other drugs, medicaments and biological substances
CPT/HCPCS: 36415; 71045; 73630; 80053; 84703; 85025; 96365; 96375; 99285; J0131; J2060; J7030

== ENCOUNTER → 2025-06-22 12:56 | Outpatient (BNVA) | payer BC, MEDICAID, SELFPAY | PROVIDERS: PCP Family Medicine; Referring Provider Nurse Practitioner Family; Visit Provider Specialist | DX: S49.92XA Unspecified injury of left shoulder and upper arm, initial encounter (principal); M25.512 Pain in left shoulder; G56.92 Unspecified mononeuropathy of left upper limb; M89.8X1 Other specified disorders of bone, shoulder; V89.2XXA Person injured in unspecified motor-vehicle accident, traffic, initial encounter | CPT/HCPCS: 73030 ==

== ENCOUNTER 2025-07-03 11:00 | Outpatient (CLI) | payer BC, MEDICAID, SELFPAY ==
--- NOTE | 2025-07-03 11:00 | MR_ITS ---
WS: [id number] MRI LEFT SHOULDER HISTORY: scapula pain COMPARISON: Radiograph 06/22/2025 TECHNIQUE: Multiplanar sequences of the shoulder joint are submitted. Normal AC joint. No fluid along the AC joint. There is subacromial impingement by a 5 mm osteophyte along the distal undersurface of the acromion. No os acromion. Normal position of the biceps tendon. Humeral head normally seated within the glenoid. Normal appearance of the glenoid and the visualized scapula. No marrow edema within the scapula. No rotator cuff muscle atrophy or edema. Mild tendinopathy in the distal supraspinatus. Infraspinatus and subscapularis tendons are intact. No labral tear. Normal rotator cuff interval. MR/MR shoulder LT wo con* [id number] IMPRESSION: 1. No marrow edema or signal abnormalities noted within the scapula. 2. Mild subacromial impingement upon the distal supraspinatus. 3. No joint effusion. 4. No rotator cuff tendon tear.
== END 2025-07-03 11:01 | disposition home or self-care (01) ==
LOC: RAD 11:01
PROVIDERS: PCP Family Medicine; Visit Provider Specialist
DX: M89.8X1 Other specified disorders of bone, shoulder (principal); M75.42 Impingement syndrome of left shoulder; M75.82 Other shoulder lesions, left shoulder
CPT/HCPCS: 73221

== ENCOUNTER → 2025-07-13 11:31 | Outpatient (BNVA) | payer BC, MEDICAID, SELFPAY | PROVIDERS: PCP Family Medicine; Referring Provider Specialist; Visit Provider Anesthesiology Pain Medicine | DX: M54.2 Cervicalgia (principal) | CPT/HCPCS: 72040 ==

== ENCOUNTER 2025-07-24 09:26 | Outpatient (RCR) | payer BC, MEDICAID, SELFPAY | END 2025-08-12 23:59 | disposition home or self-care (01) | LOC: SPT 09:26 | PROVIDERS: PCP Family Medicine; Visit Provider Anesthesiology Pain Medicine | DX: M54.2 Cervicalgia (principal); G89.29 Other chronic pain | CPT/HCPCS: 97110; 97161 ==